=== PATIENT | female | born 1950 | race Caucasian/White ===

== ENCOUNTER 2018-11-27 14:44 | Inpatient (IN) ==
[2018-11-27 17:45] LABS: URINE SOURCE CATH
[2018-11-27 17:50] LABS: BILIRUBIN URINE NEGATIVE (NEGATIVE); BLOOD URINE NEGATIVE (NEGATIVE); COLOR YELLOW; GLUCOSE URINE NEGATIVE (NEGATIVE); KETONE URINE 40 mg/dL (NEGATIVE); LEUKOCYTES URINE NEGATIVE (NEGATIVE); NITRITE URINE NEGATIVE (NEGATIVE); PROTEIN URINE TRACE mg/dL (NEGATIVE); SP GRAVITY URINE 1.018; TURBIDITY URINE HAZY (CLEAR); UROBILINOGEN URINE NORMAL (NORMAL)
[2018-11-27 17:51] LABS: UR EPITHELIAL CELLS <10 /HPF (<10); URINE BACTERIA NEGATIVE /HPF; URINE RBC <10 /HPF (<10); URINE WBC <10 /HPF (<10)
[2018-11-27] MEDS ORDERED: MORPHINE IV ONE ×2 (17:52→20:27)
[2018-11-27] MEDS ORDERED: ZOFRAN IV ONE (17:52)
[2018-11-27] MEDS ORDERED: DUONEB (A & A) INH ONE (17:54)
--- NOTE | 2018-11-27 18:10 | Diag Imaging Result Doc PS360 ---
EXAM: CHEST-PORTABLE HISTORY: shortness of breath TECHNIQUE: Portable chest single view COMPARISON: 10/02/2018 FINDINGS: The lungs are hyperexpanded. The heart is not enlarged. The vessels are small. There are no infiltrates. No effusion identified. Calcified right hilar lymph nodes with granuloma in the mid right lung. IMPRESSION: Emphysema Electronically signed by Grupo Nelson 11/27/2018 6:08 PM
[2018-11-27 18:43] LABS: BASO# 0.02 X1000 (0.0-0.2); BASO% 0.3 % (0.0-0.8); EOS# 0.02 X1000 (0.0-0.7); EOS% 0.3 % (0.0-10.0); HEMATOCRIT 32.8 % (37.0-47.0); HEMOGLOBIN 11.4 g/dL (12.0-16.0); LYMPH# 0.91 X1000 (1.2-3.4); LYMPH% 12.1 % (20.5-51.1); MCH 30.3 PG (27-31); MCHC 34.8 g/dL (33-37); MCV 87.2 FL (81-99); MONO# 0.39 X1000 (0.11-0.59); MONO% 5.2 % (1.7-9.3); MPV 9.4 FL (7.4-10.4); NEUT# 6.21 X1000 (1.4-6.5); NEUT% 82.1 % (42.2-75.2); PLT 298 X1000 (130-400); RBC 3.76 XMIL (4.2-5.4); RDW 14.9 % (11.5-14.5); WBC 7.55 X1000 (4.8-10.8)
[2018-11-27 18:57] LABS: INR 0.93; PROTIME 13.2 Seconds (11.0-16.0)
[2018-11-27 18:58] LABS: PTT 31.2 Seconds (22.3-41.8)
[2018-11-27 19:19] LABS: ESTIMATED GFR > 60
[2018-11-27 19:23] LABS: AGAP 12; ALBUMIN 4.3 g/dL (3.5-5.0); ALKALINE PHOSPHATASE 71 U/L (32-104); BUN 10 mg/dL (8-22); CALCIUM 9.4 mg/dL (8.8-10.2); CHLORIDE 87 mmol/L (98-107); CK PROFILE 68 U/L (24-173); COSMO 251; CREATININE 0.3 mg/dL (0.5-0.9); GLUCOSE 100 mg/dL (70-104); GOT 18 U/L (10-30); GPT 23 U/L (10-36); POTASSIUM 4.2 mmol/L (3.5-5.1); SODIUM 125 mmol/L (136-145); TCO2 26 mmol/L (25-35); TOTAL BILIRUBIN 0.44 mg/dL (0.20-1.00); TOTAL PROTEIN 6.4 g/dL (6.3-8.3)
--- NOTE | 2018-11-27 21:30 | Diag Imaging Result Doc PS360 ---
EXAM: CT ABD/PELVIS W/IV CONT ONLY HISTORY: left groin pain; h/o inguinal hernia repair TECHNIQUE: CT abdomen and pelvis with intravenous contrast COMPARISON: Pelvis from 09/30/2018 FINDINGS: There are scattered granuloma in the lower lungs. There is emphysema with infiltrates in the lower left lung versus scarring. There is a small hepatic cysts and there is fatty infiltration of the liver. Spleen is not enlarged. The pancreas is atrophic. Neither adrenal gland is enlarged. No renal masses. Prominent atherosclerosis. Small distal abdominal aortic aneurysm measuring 3.1 cm. There is stool throughout the colon. There are several fluid distended loops of small bowel. Possible fluid within the left inguinal hernia. This is smaller than on the prior study. The urinary bladder is distended. There is body wall edema. IMPRESSION: 1.Questionable recurrent incarcerated left inguinal hernia although there is prominent constipation. 2.Small aortic aneurysm This exam was performed using automated exposure control, adjustment of mA or kV according to patient size, and/or use of iterative reconstruction technique. Electronically signed by Grupo Nelson 11/27/2018 9:28 PM
--- NOTE | 2018-11-27 22:36 | PROVIDER DOCUMENTATION ---
This chart was entered by Renetta Springer Scribe, acting as scribe for Nicanor Martinez MD. HPI-General Adult - General Chief Complaint: Groin Pain Stated Complaint: GROIN PAIN Time Seen by Provider: 11/27/18 17:27 Source: patient Allergies/Adverse Reactions: Patient Allergies Allergy/AdvReac Type Severity Reaction Status Date / Time diclofenac Allergy HEADACHE Verified 09/30/18 07:32 doxycycline Allergy SWELLING Verified 09/30/18 07:32 Tetanus Vaccines and Toxoid Allergy ANAPHYLAXIS Verified 09/30/18 07:32 [Tetanus Vaccines & Toxoid] propoxyphene HCl * AdvReac Unknown Verified 09/30/18 07:32 [From Darvon] Home Medications: Home Medication List Medication Instructions Recorded Confirmed Last Taken Type Fluticasone/Salmet 250/50 INH 1 puff INH RTBID 11/29/14 09/30/18 08/12/18 08:00 History [Advair 250/50 Diskus] Ranitidine HCl [Zantac] 150 mg PO BID 11/29/14 09/30/18 08/12/18 08:00 History Tiotropium [place] Inhaler 1 puff INH RTDAILY 11/29/14 09/30/18 08/11/18 13:00 History [Spiriva] Alprazolam 0.25 mg PO TID 08/12/18 09/30/18 08/12/18 08:00 History Albuterol Sulfate [Proventil Hfa] 6.7 gm IH PRN PRN 09/30/18 09/30/18 Unknown History Cyclobenzaprine [Flexeril] 10 mg PO PRN PRN 09/30/18 09/30/18 Unknown History Ipratropium [place] Neb [Atrovent 0.5 mg INH PRN PRN 09/30/18 09/30/18 Unknown History Neb] Venlafaxine E.r. [Effexor Xr] 150 mg PO DAILY 09/30/18 09/30/18 Unknown History Hydrocodone/APAP 10 mg/325 mg 1 ea PO Q4H PRN PRN #14 tab 10/02/18 Unknown Rx [[place]-10] - History of Present Illness -Gen Adult Nature of Presenting Problems: 67 yof hx of left groin hernia sx presents to ed with cc of left groin pain that radiates to left knee,left ankle and to the left flank. Reports sudden onset and is debilitates her from walking due to pain. Reports sharp and throbbing in nature. States nausea. Took ibuprofen and xanax with relief. Has copd on 3lpm. Review of Systems - Adult - REVIEW OF SYSTEMS - ADULT Constitutional: denies: chills, fever, fatique Eyes: reports: no symptoms reported Ears, Nose, Mouth & Throat: denies: ear pain, sinus problem, throat pain Cardiovascular: reports: no symptoms reported Respiratory: denies: cough, shortness of breath, wheezing Gastrointestinal: reports: nausea. denies: abdominal pain, diarrhea, vomiting Genitourinary: reports: flank pain (left), other (groin pain). denies: dysuria , discharge, frequency, frequent UTI's, hematuria, hesitency, incontinence Musculoskeletal: denies: bone pain, back pain, joint pain, joint swelling Integumentary: reports: no symptoms reported Neurological: reports: no symptoms reported Psychiatric: reports: no symptoms reported Endocrine: reports: no symptoms reported Hematologic/Lymphatic: reports: no symptoms reported Allergic/Immunologic: reports: no symptoms reported All Other Systems: Reviewed and Negative Past History - Adult - PAST MEDICAL HISTORY-ADULT Review of Records: reports: Nursing Assessment Review, Medications Reviewed Major Childhood Illnesses: reports: denies history Cardiovascular: reports: denies history Respiratory: reports: COPD Gastrointestinal: reports: GERD Obstetrical/Gynecological: reports: denies history Genitourinary: reports: denies history Musculoskeletal: reports: denies history Neurological: reports: headaches/migraines Psychiatric: reports: depression Endocrine/Immune: reports: Diabetes Other Conditions: reports: denies history - PRIOR SURGERIES/PROCEDURES Surgical/Procedure History: reports: BTL, tonsillectomy - PRIOR HOSPITALIZATIONS Prior Hospitalizations: reports: for other non-related - IMMUNIZATION STATUS Childhood Immunizations: See Nurse Assessment Flu Vaccine: See Nurse Assessment - FAMILY HISTORY Family History: reviewed, not pertinent - SOCIAL HISTORY Smoking: cigarettes, greater than 1 pack/day Provider spent 3-5 mins advising pt. on dangers of tobacco.: Discussed manners to quit use, and f/u contacts for add'l counseling. Physical Exam-General - PHYSICAL EXAM-ADULT Initial Vital Signs Reviewed: Yes - CONSTITUTIONAL General Appearance: alert, moderate distress, thin, other (3 lpm NC o2) - EYES Eyes: PERRL/EOMI, pink conjunctivae - HEAD, EARS, NOSE, MOUTH & THROAT HENMT: moist mucous membranes - NECK Neck: non-tender, full range of motion, supple, normal inspection - RESPIRATORY Respiratory: decreased breath sounds, prolonged expiration. negative: wheezing - CARDIOVASCULAR Cardiovascular: regular rate, rhythm - GASTROINTESTINAL (ABDOMEN) Abdominal Exam: non tender, soft, no organomegaly, no pulsatile mass, tenderness (moderate, in left groin ; prior surgical scar noted with induration noted) - GENITOURINARY Female Genitalia/Pelvic Exam: other (left groin tenderness upon palpation, healed surgical scar to left groin). negative: mass - MUSCULOSKELETAL Back Exam: normal inspection Extremity: normal range of motion, other (walks bent over due to pain) - SKIN Integumentary: normal color, normal turgor, warm/dry - NEUROLOGIC Neurologic: grossly normal - PSYCHIATRIC Psych/Mental Status: normal thought process, oriented x 3 Progress - PLAN OF CARE/RESULTS Progress/Plan/Lab Results: Vital Signs - 8 hr 11/27/18 15:09 11/27/18 17:33 Temperature 98.7 F 98.7 F Pulse Rate 94 H 89 Respiratory Rate 20 20 Blood Pressure 147/78 148/80 O2 Sat by Pulse Oximetry 97 97 Orders Category Date Time Status CBC WITH ELECTRONIC DIFF [HEME] Stat Lab 11/27/18 17:28 Uncollected COMPREHENSIVE METABOLIC PANEL [CHEM] Stat Lab 11/27/18 17:28 Uncollected PT [PROTIME WITH INR] [COAG] Stat Lab 11/27/18 17:28 Uncollected PTT [COAG] Stat Lab 11/27/18 17:28 Uncollected UA NIMS W/REFLEX CULT [URINALYSIS] Stat Lab 11/27/18 16:37 Ordered Result Diagrams: 11/27/18 18:28 11/27/18 18:28 - XRAY 1 XRAY Study: Chest Impression: Abnormal (EXAM: CHEST-PORTABLE HISTORY: shortness of breath TECHNIQUE: Portable chest single view COMPARISON: 10/02/2018 FINDINGS: The lungs are hyperexpanded. The heart is not enlarged. The vessels are small. There are no infiltrates. No effusion identified. Calcified right hilar lymph nodes with granuloma in the mid right lung. IMPRESSION: Emphysema Electronically signed by Grupo Nelson 11/27/2018 6:08 PM 11/27/181807 Interpreting Physician: Grupo Nelson MD Dictated Date/Time: 11/27/[id number]) - CONSULTS/PCP/HOSPITALIST Notification #1 *Consult/PCP/Hospitalist*: Dr. Minor Time Discussed: 22:10 Consult Disposition: Will see in ED Departure - Departure Date of Disposition Decision: 11/27/18 Time of Disposition Decision: 22:35 DIAGNOSIS: Hyponatremia, Incarcerated hernia Groin pain Qualifiers: Laterality: left Qualified Code(s): R10.32 - Left lower quadrant pain Disposition: ADMITTED INPATIENT 09 Certified Medical Emergency: Emergent Condition: Serious - Critical Care Note This patient required my direct & personal management of CC.: No Attestation - Physician/ DAGOBERTO Attestation Patient care was provided by Advanced Practice Provider:: No The physician spent face to face time with patient:: Yes Advanced Practice Provider documentation review:: Supervising physician onsite and consulted in the evaluation and care of this patient. The physician did have a face to face encounter with the patient. This chart was documented by the indicated scribe, (Renetta Springer Scribe) and accurately reflects the services I performed and decisions made by me, Nicanor Martinez MD, as attested by the provider's signature.
[2018-11-27] MEDS ORDERED: MORPHINE IV PRN (23:01)
[2018-11-27] MEDS: NS 1,000 ML IV SCH (23:01)
[2018-11-27] MEDS ORDERED: VENTOLIN HFA INH PRN (23:01)
[2018-11-27] MEDS ORDERED: ATROVENT NEB INH PRN (23:01)
--- NOTE | 2018-11-28 01:09 | HISTORY AND PHYSICAL ---
CHIEF COMPLAINT: Left groin pain. HISTORY OF PRESENT ILLNESS: This is a 67-year-old female who experienced a sudden onset of pain today around 1:00 p.m., it has persisted so she has sought medical attention. She had a similar presentation in September at which time she was felt to have an incarcerated obturator hernia. Her CT scan today shows a small area of low density in the left groin region which is possible for an incarcerated hernia. She denies any nausea or vomiting. PAST MEDICAL HISTORY: Pertinent for COPD, gastroesophageal reflux disease, history of depression, and nicotine abuse. PAST SURGICAL HISTORY: Includes a tonsillectomy, bilateral tubal ligation, and the obturator hernia repair in September. MEDICATIONS AT HOME: Include Proventil inhaler as needed, calcium 600 mg daily, Advair 250/50 one puff b.i.d., multivitamins 1 daily, Zantac 150 mg b.i.d., Spiriva 1 puff daily, Effexor XR 150 mg daily, vitamin E 400 units daily, alprazolam 0.25 mg t.i.d. ALLERGIES: She is allergic to diclofenac, doxycycline, tetanus vaccines, and propoxyphene. PRIMARY CARE PHYSICIAN: Orion Freire MD. FAMILY HISTORY: Noncontributory. SOCIAL HISTORY: She lives alone. She does smoke. She denies alcohol use. REVIEW OF SYSTEMS: Pertinent for weight loss, primarily a chronic cough, and today the left groin pain. PHYSICAL EXAMINATION: VITAL SIGNS: She is afebrile, heart rate 89, respiratory rate 20, blood pressure 148/80. LUNGS: Bilateral breath sounds. She has oxygen. HEART: Regular rate and rhythm. ABDOMEN: Soft. I do not palpate a hernia in the left groin. I cannot pinpoint the area of hernia. I did not feel any thing in her femoral canal. DIAGNOSTICS/LABS: White count is 7500, hemoglobin 11.4, hematocrit 32. Sodium 125, potassium 4.2, chloride 87. She did have ketones in her urine. CT scan shows constipation and a possible low-density area in the left groin. PLAN: The plan is admission, IV hydration and keep her NPO. We will give her some pain relief. We will do serial abdominal exams. She may come to laparoscopy. cc: Escobar Minor MD
[2018-11-28] MEDS: ADVAIR 250/50 DISKUS INH SCH ×2 (07:30→20:50)
--- NOTE | 2018-11-28 08:19 | GENERAL SURGERY PROGRESS NOTE ---
DATE: 11/28/2018 SUBJECTIVE: Ms. Lambert says her left lower quadrant pain is significantly improved today and is not causing her any discomfort. OBJECTIVE: She is short of breath. She has distant breath sounds. Her abdomen is soft and nontender. She is afebrile. Heart rate is 76, blood pressure 123/69. The plan will be to consult pulmonology. We will go ahead and feed her today since her symptoms are better. cc: Escobar Minor MD
[2018-11-28 08:34] LABS: HEMATOCRIT 33.3 % (37.0-47.0); HEMOGLOBIN 11.2 g/dL (12.0-16.0); MCH 29.9 PG (27-31); MCHC 33.6 g/dL (33-37); MPV 8.9 FL (7.4-10.4); RBC 3.74 XMIL (4.2-5.4); RDW 15.3 % (11.5-14.5); WBC 6.21 X1000 (4.8-10.8)
[2018-11-28 09:39] LABS: AGAP 10; BUN 7 mg/dL (8-22); CALCIUM 9.3 mg/dL (8.8-10.2); CHLORIDE 94 mmol/L (98-107); COSMO 262; CREATININE 0.4 mg/dL (0.5-0.9); ESTIMATED GFR > 60; GLUCOSE 89 mg/dL (70-104); POTASSIUM 3.9 mmol/L (3.5-5.1); SODIUM 132 mmol/L (136-145); TCO2 28 mmol/L (25-35)
[2018-11-28 10:14] LABS: ALLEN TEST YES; BE 4.4 mmoll (-3.0-3.0); BLOOD TYPE ARTERIAL; HCO3-(ACT) 28.3 mmoll (20.0-26.0); O2(CT) 15.4 mL/dL (15.0-23.0); O2HB 95.9 % (95.0-99.0); PCO2(98.6) 50 mmHg (35-45); PO2(98.6) 107 mmHg (60-100); SAMPLE BLOOD; SAO2 98.4 % (95.0-100.0); THB 11.3 g/dL (11.5-17.4); pH(98.6) 7.39 (7.35-7.45)
[2018-11-28 10:15] LABS: MODALITY VENTIMASK
[2018-11-28] MEDS: EFFEXOR XR PO SCH (10:53)
[2018-11-28] MEDS: ZANTAC PO SCH ×2 (10:53→22:37)
[2018-11-28] MEDS: XANAX PO SCH ×3 (10:54→22:36)
[2018-11-28] MEDS: SPIRIVA INH SCH (11:14)
--- NOTE | 2018-11-28 12:52 | PULMONOLOGY CONSULTATION ---
DATE: 11/28/2018 REQUESTING PHYSICIAN: Dr. Escobar Minor. REASON FOR CONSULTATION: COPD. HISTORY OF PRESENT ILLNESS: Ms Lambert is a 67-year-old white female with COPD, chronic hypoxemic respiratory failure, with ongoing tobacco use, who presented to the emergency room with left groin pain. Patient reports pain increased with standing and caused some nausea. The patient had recently undergone a surgical repair of an incarcerated femoral hernia in September. At that time, she was hypoxic at discharge and has been on chronic oxygen since that time. CT scan of the abdomen and pelvis was performed in the emergency room, which revealed significant constipation, small aortic aneurysm, and raised the possibility of a recurrent incarcerated left inguinal hernia. The patient's pain has essentially resolved. The patient has been evaluated by Dr. Escobar Minor who feels a scan is consistent with postsurgical changes with inflammatory findings and not a recurrent incarceration. The patient has noticed increased wheezing along with increased cough and sputum production, but her sputum production does not appear to be significantly different than her baseline. PAST MEDICAL HISTORY PROBLEM LIST: 1. COPD with ongoing tobacco use. Pulmonary angiogram 08/12/2018 revealed severe emphysematous changes with evidence of prior granulomatous disease, but no acute disease. 2. Status post recent inguinal hernia repair as per above. 3. Gastroesophageal reflux disease. 4. Status post tonsillectomy. 5. Status post bilateral tubal ligation. 6. Remote history of alcohol abuse. SOCIAL HISTORY: The patient is . Ongoing tobacco use as per above. History of alcohol abuse. The patient has been a nondrinker for greater than 35 years by her report. REVIEW OF SYSTEMS: Notable for shortness of breath with any exertion, cough with daily sputum production. PHYSICAL EXAMINATION: General: Reveals a frail chronically ill-appearing white female in the emergency room. She is in no distress. Vital Signs: Blood pressure 123/72, heart rate 86, respiratory rate 21, oxygen saturation 98%. HEENT: Pupils are equal and reactive. Oropharynx is clear. Neck: Supple. Chest: Reveals markedly diminished breath sounds bilaterally with faint expiratory wheezing. Cardiac exam: Distant heart sounds. Normal S1, normal S2. Abdomen: Soft without hepatosplenomegaly. Extremities: Without significant edema. LABORATORIES/X-RAYS: Chest x-ray reveals hyperinflation with thinning of the vessels, evidence of prior granulomatous disease, no acute changes. Arterial blood gas reveals a pH of 7.39, pCO2 of 50, PO2 of 107. IMPRESSION: A 67-year-old with severe chronic obstructive pulmonary disease, ongoing tobacco use, who presents with a chronic obstructive pulmonary disease exacerbation. RECOMMENDATIONS: 1. We will initiate routine bronchodilators. 2. Attempt to collect sputum for C and S. 3. Initiate steroids. 4. Smoking cessation discussion. Long discussion was held. She reports she is down to 1/2 pack a day from previously smoking 1 pack a day, and she would like to continue to decrease this amount and stop by her birthday in December. cc: MD Escobar Bautista MD
[2018-11-28] MEDS: DUONEB (A & A) INH SCH ×2 (14:52→20:50)
[2018-11-28] MEDS: PREDNISONE PO SCH (22:35)
[2018-11-28] MEDS: LEVAQUIN PO SCH (22:36)
[2018-11-29] MEDS: NS 1,000 ML IV SCH ×2 (01:28→12:44)
[2018-11-29] MEDS: DUONEB (A & A) INH SCH ×2 (03:25→10:05)
[2018-11-29 07:41] VITALS: BP 105/57
--- NOTE | 2018-11-29 08:35 | GENERAL SURGERY PROGRESS NOTE ---
DATE: 11/29/2018 Ms. Lambert is asymptomatic this morning. Her abdomen is nontender. She is eating well, and she is ready to be discharged. We will let her go home. I have asked her to call me in the office if she has further symptoms. She says she will. cc: Escobar Minor MD
[2018-11-29] MEDS: EFFEXOR XR PO SCH (09:06)
[2018-11-29] MEDS: XANAX PO SCH (09:06)
[2018-11-29] MEDS: LEVAQUIN PO SCH (09:06)
[2018-11-29] MEDS: PREDNISONE PO SCH (09:06)
[2018-11-29] MEDS: ZANTAC PO SCH (09:06)
[2018-11-29] MEDS: ADVAIR 250/50 DISKUS INH SCH (10:06)
[2018-11-29] MEDS: SPIRIVA INH SCH (10:06)
--- NOTE | 2018-11-29 23:37 | PULMONOLOGY PROGRESS NOTE ---
DATE: 11/29/2018 SUBJECTIVE: The patient reports her abdominal pain has completely resolved. She is also having decreased shortness of breath, and her oxygen requirements have diminished. She is being evaluated for discharge. OBJECTIVE: Vital Signs: The patient has been afebrile for the last 24 hours. Blood pressure 105/57, heart rate 90, respiratory rate 20, oxygen saturation 93% on 3 L per nasal cannula. HEENT: Pupils are equal and reactive. Oropharynx is clear. Neck: Supple. Chest: Reveals prolonged expiratory phase, with minimal wheezing. Cardiac: S1-S2. Abdomen: Soft. Extremities: Without edema. LABORATORIES: Sputum culture reveals sparse growth. No new chemistries or CBC. IMPRESSION: A 67-year-old with severe COPD, ongoing tobacco use, with COPD exacerbation. Clinically, she is improved, and is currently being evaluated for discharge. RECOMMENDATIONS: 1. Continue antibiotics. The patient was given a prescription for Levaquin at discharge. 2. Initiate a steroid taper. 3. Encourage smoking cessation. The patient says she is committed to discontinuing tobacco, and is attempting to have stopped smoking by her birthday in December. 4. Anticipate discharge today. cc: MD Escobar Bautista MD
== END 2018-11-29 12:56 | disposition home or self-care (01) | DRG 392 ==
LOC: ED 14:44 → EDIPHOLD 11-28 00:28 → 4N 11-28 14:22
PROVIDERS: ADMIT Surgery; ATTEND Surgery
CPT/HCPCS: 71010; 71045; 74177; 80048; 80053; 81001; 82550; 82805; 84484; 85025; 85027; 85610; 85730; 87070; 87077; 87186; 87205; 93005; 94640; 94761; 94762; 96374; 96375; 96376; 99285; A9270; J2270; J2405; J7030; J7506; J7512; Q9967

== ENCOUNTER 2019-01-23 09:43 | Inpatient (IN) ==
[2019-01-23] MEDS ORDERED: ATIVAN IV ONE (10:44)
[2019-01-23] MEDS ORDERED: SOLU-MEDROL IV ONE (10:44)
[2019-01-23] MEDS ORDERED: DUONEB (A & A) INH ONE (10:44)
--- NOTE | 2019-01-23 10:47 | Diag Imaging Result Doc PS360 ---
EXAM: CHEST-2 VIEWS HISTORY: SOB TECHNIQUE: Chest two views COMPARISON: 01/16/2019 FINDINGS: The lungs are hyperexpanded. The heart is not enlarged. The vessels are small. There are no infiltrates. No pleural effusions. There are scattered granuloma. IMPRESSION: Severe emphysema. Electronically signed by Grupo Nelson 01/23/2019 10:45 AM
[2019-01-23 10:57] LABS: BASO# 0.01 X1000 (0.0-0.2); BASO% 0.1 % (0.0-0.8); EOS# 0.02 X1000 (0.0-0.7); EOS% 0.3 % (0.0-10.0); HEMATOCRIT 37.8 % (37.0-47.0); HEMOGLOBIN 13.3 g/dL (12.0-16.0); LYMPH# 0.54 X1000 (1.2-3.4); LYMPH% 6.9 % (20.5-51.1); MCH 30.8 PG (27-31); MCHC 35.2 g/dL (33-37); MCV 87.5 FL (81-99); MONO# 0.41 X1000 (0.11-0.59); MONO% 5.2 % (1.7-9.3); MPV 9.4 FL (7.4-10.4); NEUT# 6.85 X1000 (1.4-6.5); NEUT% 87.5 % (42.2-75.2); PLT 350 X1000 (130-400); RBC 4.32 XMIL (4.2-5.4); WBC 7.83 X1000 (4.8-10.8)
[2019-01-23 11:00] LABS: INR 0.93; PROTIME 13.2 Seconds (11.0-16.0)
[2019-01-23 11:01] LABS: PTT 31.7 Seconds (22.3-41.8)
[2019-01-23 11:17] LABS: ESTIMATED GFR > 60
[2019-01-23 11:37] LABS: ALLEN TEST YES; BLOOD TYPE ARTERIAL; HCO3-(ACT) 29.5 mmoll (20.0-26.0); METHB 0.5 % (0.0-1.5); O2(CT) 17.5 mL/dL (15.0-23.0); O2HB 94.6 % (95.0-99.0); PCO2(98.6) 43 mmHg (35-45); PO2(98.6) 78 mmHg (60-100); SAMPLE BLOOD; SAO2 97.6 % (95.0-100.0); THB 13.1 g/dL (11.5-17.4); pH(98.6) 7.46 (7.35-7.45)
[2019-01-23 11:41] LABS: AGAP 10; ALB/GLOB RATIO 1.8; ALBUMIN 4.7 g/dL (3.5-5.0); ALKALINE PHOSPHATASE 85 U/L (32-104); BUN 12 mg/dL (8-22); CALCIUM 9.9 mg/dL (8.8-10.2); CHLORIDE 85 mmol/L (98-107); CK PROFILE 78 U/L (24-173); COSMO 251; CREATININE 0.4 mg/dL (0.5-0.9); GLUCOSE 100 mg/dL (70-104); GOT 27 U/L (10-30); GPT 33 U/L (10-36); POTASSIUM 4.1 mmol/L (3.5-5.1); SODIUM 125 mmol/L (136-145); TCO2 30 mmol/L (25-35); TOTAL BILIRUBIN 0.27 mg/dL (0.20-1.00); TOTAL PROTEIN 7.3 g/dL (6.3-8.3)
[2019-01-23 11:43] LABS: MODALITY CANNULA
[2019-01-23] MEDS ORDERED: ZOFRAN IV PRN (13:31)
[2019-01-23] MEDS ORDERED: TYLENOL PO PRN (13:31)
[2019-01-23] MEDS ORDERED: DUONEB (A & A) INH PRN (13:32)
[2019-01-23] MEDS: SOLU-MEDROL IV SCH (13:45)
[2019-01-23] MEDS: NS 1,000 ML IV SCH (13:51)
--- NOTE | 2019-01-23 14:39 | HISTORY AND PHYSICAL ---
CHIEF COMPLAINT: Shortness of breath. HISTORY OF PRESENT ILLNESS: This is a 68-year-old female with a history of COPD with continued tobacco use, home O2 at 4 L nasal cannula, who presents complaining of increasing shortness of breath over the last 2 days, stating that just prior to coming to the emergency room she developed 90 degree orthopnea with some chest tightness, therefore she presented for evaluation. She was found to be in a COPD exacerbation. She denied any syncope, dizziness, any palpitations, any fevers or chills, or productive cough. PAST MEDICAL HISTORY: 1. COPD with ongoing tobacco use. 2. Severe emphysematous changes on pulmonary arteriogram in July 2018. 3. Gastroesophageal reflux disease. 4. Remote history of alcohol abuse. 5. Status post recent inguinal hernia repair with continued pain. PAST SURGICAL HISTORY: Hernia repair, tonsillectomy, bilateral tubal ligation. SOCIAL HISTORY: She is . She smokes. She does have a history of alcohol abuse, although she states she has been a nondrinker for 35 years. ALLERGIES: Diclofenac, doxycycline, tetanus, and Darvon. HOME MEDICATIONS: A list will be obtained by the nursing staff and once verified will review and restart as is appropriate. REVIEW OF SYSTEMS: Discussed with patient with pertinent positives stated in the HPI. She denied any syncope, dizziness, palpitations, productive cough, any fevers or chills, any night sweats, recent weight loss or weight gain, any nausea, vomiting, diarrhea, constipation, black or bloody vomitus or stools, hematuria, dysuria, frequency, urgency. PHYSICAL EXAMINATION: GENERAL: This is a 68-year-old female who is sitting up in the bed, eating lunch in the emergency room, in no distress. VITAL SIGNS: Blood pressure is 136/80 with a heart rate of 96, respirations are 22, temperature is 98.8 degrees. EYES: Pupils are equal, round, react to light. EOMs are intact. Sclerae anicteric. HENT: Head is normocephalic, atraumatic. Mucous membranes are moist. NECK: Supple with trachea midline. PULMONARY: She has diminished breath sounds throughout with prolonged respiration with some scattered expiratory wheezes. Chest rises and falls symmetric with respiration. Chest wall is nontender to palpation. GASTROINTESTINAL: Abdomen is soft, nontender, nondistended with bowel sounds in all 4 quadrants. NEUROLOGIC: She is alert and oriented x3. SKIN: Warm and dry. LABS: WBC is 7.8, with hemoglobin 13.3, hematocrit 37.8, platelets of 350,000. Sodium is 125, potassium 4.1, BUN 12, creatinine 0.4, glucose is 100. Troponin is less than 0.010, with a proBNP of 787. Chest x-ray reveals severe emphysema with lungs hyperexpanded. Heart is not enlarged. Vessels are small. There are no infiltrates. No pleural effusions. There are scattered granuloma. ASSESSMENT: 1. Chronic obstructive pulmonary disease, acute on chronic exacerbation. 2. Gastroesophageal reflux disease. 3. Hyponatremia. 4. Shortness of breath secondary to #1. 5. Tobacco use and abuse. PLAN: The patient will be admitted to the medical-surgical floor and placed on telemetry. We will continue her O2 on 4 L as at home. Give DuoNeb q.4 hours and q.2 hours p.r.n. and steroids to taper. Will identify her home medications and continue these as is appropriate. We will start saline at 75 mL an hour. Will review her home medications for possible cause of hyponatremia. We will repeat her labs in the morning. For DVT prophylaxis will use SCDs and GI prophylaxis Prilosec. Further treatments pending hospital course. Dictated by CITLALY Figueroa for Harley Baugh MD This chart was documented by, CITLALY Figueroa and accurately reflects the services performed, treatment plan and medical decisions as attested by the providers signature Harley Baugh MD. cc: CITLALY Figueroa MD [facility]
[2019-01-23] MEDS: DUONEB (A & A) INH SCH ×3 (14:58→23:37)
[2019-01-23] MEDS: XANAX PO PRN (17:23)
[2019-01-23] MEDS: NICODERM PATCH TD SCH (18:26)
[2019-01-23] MEDS: MOTRIN PO PRN ×2 (18:27→21:34)
--- NOTE | 2019-01-23 20:25 | HISTORY AND PHYSICAL ---
ADDENDUM: Ms. Lambert has endstage COPD, on home oxygen. She usually follows up with Dr. Freire. According to her, she was here about a week ago for what appeared to have been COPD exacerbation. She was sent home on steroids and azithromycin. According to her, she felt some better; however, since 2 days ago she felt like something was clogging up her lungs. This morning when she woke up she could barely breathe, so she came to the emergency department. She was re- evaluated and determined that she was in severe COPD exacerbation, so she has been admitted for management. PHYSICAL EXAMINATION: VITAL SIGNS: Blood pressure is 163/113, pulse is 109, respirations 24. The patient was saturating about 91% to 89%. GENERAL: Ms. Lambert is a 68-year-old, extremely cachectic female. She was in tripod position. She seems to be in distress. HEENT: Mucosa is pink and moist. CHEST: Air entry is bilaterally reduced. There is very faint movement of air in both lung gee. I did not hear any crackles. CARDIOVASCULAR: Tachycardic but no murmurs. EXTREMITIES: No pedal edema. DRILLING ENGINEER: The patient is awake, alert and oriented. ASSESSMENT: 1. Idllb-kg-nrjgjeg hypoxemic respiratory failure. 2. Severe chronic obstructive pulmonary disease exacerbation. 3. Ongoing tobacco abuse. The patient, however, refers to have shown improvement from almost 2 packs a day to just 2 cigarettes a day. 4. Gastroesophageal reflux disease. PLAN: We are going to continue with standard of care including bronchodilation therapy, steroids and antibiotics. The patient is getting gentle hydration overnight. We will re-evaluate her hydration status in the morning. We will get also Pulmonary Medicine and PT to evaluate her. We will put the patient also on incentive spirometer. Please refer to the details of the H and P in the chart which has been dictated by the MASTER GLAZIER. I agreed with the findings and the plan. cc: Harley Baugh MD
[2019-01-23] MEDS: ADVAIR 250/50 DISKUS INH SCH (21:34)
[2019-01-24] MEDS: SOLU-MEDROL IV SCH ×4 (00:04→20:35)
[2019-01-24] MEDS: ZANTAC PO SCH ×4 (00:06→17:41)
[2019-01-24] MEDS: MOTRIN PO PRN ×5 (01:02→20:33)
[2019-01-24] MEDS: DUONEB (A & A) INH SCH ×6 (02:54→23:15)
[2019-01-24] MEDS: NS 1,000 ML IV SCH (06:01)
[2019-01-24 06:31] LABS: HEMATOCRIT 32.1 % (37.0-47.0); HEMOGLOBIN 11.4 g/dL (12.0-16.0); LYMPH# 0.33 X1000 (1.2-3.4); LYMPH% 11.1 % (20.5-51.1); MCH 30.9 PG (27-31); MCHC 35.5 g/dL (33-37); MONO# 0.27 X1000 (0.11-0.59); MONO% 9.1 % (1.7-9.3); MPV 9.4 FL (7.4-10.4); NEUT# 2.36 X1000 (1.4-6.5); NEUT% 79.8 % (42.2-75.2); PLT 310 X1000 (130-400); RBC 3.69 XMIL (4.2-5.4); RDW 13.5 % (11.5-14.5); WBC 2.96 X1000 (4.8-10.8)
[2019-01-24] MEDS ORDERED: PRILOSEC PO SCH (07:00)
[2019-01-24 07:03] LABS: ESTIMATED GFR > 60
[2019-01-24 07:06] LABS: AGAP 11; ALB/GLOB RATIO 1.6; ALBUMIN 3.8 g/dL (3.5-5.0); ALKALINE PHOSPHATASE 67 U/L (32-104); BUN 12 mg/dL (8-22); CALCIUM 9.4 mg/dL (8.8-10.2); CHLORIDE 88 mmol/L (98-107); COSMO 258; CREATININE 0.4 mg/dL (0.5-0.9); GLUCOSE 113 mg/dL (70-104); GOT 22 U/L (10-30); GPT 29 U/L (10-36); POTASSIUM 4.5 mmol/L (3.5-5.1); SODIUM 128 mmol/L (136-145); TCO2 29 mmol/L (25-35); TOTAL BILIRUBIN 0.35 mg/dL (0.20-1.00); TOTAL PROTEIN 6.2 g/dL (6.3-8.3)
[2019-01-24] MEDS: SPIRIVA INH SCH (08:15)
[2019-01-24] MEDS: ADVAIR 250/50 DISKUS INH SCH ×2 (08:15→19:57)
[2019-01-24] MEDS ORDERED: VANCOMYCIN IV PER PHARMACY MISC SCH (08:45)
[2019-01-24] MEDS: NICODERM PATCH TD SCH (10:00)
[2019-01-24] MEDS: EFFEXOR XR PO SCH (10:00)
[2019-01-24] MEDS: XANAX PO PRN ×2 (10:06→18:48)
[2019-01-24] MEDS: MAXIPIME 1 GM in NS 50 ML IV SCH ×2 (10:06→20:35)
[2019-01-24] MEDS: VANCOMYCIN 1 GM/NS 1 GM/250 ML IVPB IV SCH (11:19)
[2019-01-24] MEDS ORDERED: AYR NASAL SPRAY NAS PRN (14:27)
--- NOTE | 2019-01-24 16:21 | PROGRESS NOTE ---
DATE: 01/24/2019 SUBJECTIVE: This morning, Ms. Diaz refers to be doing a little better. Still has a lot of shortness of breath. She just start coughing up some villarreal dark sputum. OBJECTIVE: Vital signs: Blood pressure is 132/68, pulse is 103, respirations 24, temperature 98.9 degrees. On general exam, Ms. Diaz is a 68-year-old female. She was sitting up in the bed in tripod position with the chest leaned forward. She looks remarkably emaciated with a BMI of 13.08. Her neck is supple, no JVD. Chest: Air entry was bilaterally reduced. There is some faint wheezing, but no rhonchi and no crackles. There is a prolonged expiratory phase of respiration. Cardiovascular is regular rate and rhythm. No murmurs, no rubs, no gallops. Abdomen is soft, nontender. Bowel sounds present. Extremities: No pedal edema. Central Nervous System: Patient is awake, alert, oriented. There is no focal neurological deficit. DIAGNOSTIC STUDIES: WBC is 2.96, hemoglobin is 11.4, platelet count of 310,000. Chemistry is also reviewed completely unremarkable. No imaging studies for today. ASSESSMENT: 1. Acute on chronic hypoxemic respiratory failure secondary to chronic obstructive pulmonary disease (COPD) exacerbation. 2. 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 We will continue with the current bronchodilation therapy, antibiotics, and steroid use. 3. Ongoing tobacco abuse. Patient has been counseled. 4. Gastroesophageal reflux disease (GERD). We will continue with PPI. 5. Pulmonary cachexia. Noted. 6. Hyponatremia, improving. In general, Ms. Diaz is extremely critical, very sick, end-stage COPD in exacerbation. The lungs still sound pretty tight. She is now coughing up some grayish dark sputum which we are going to collect and sent for Gram stain and culture. We will continue with the current antibiotics. We have discussed DNR status with Ms. Diaz, and she wants to be DNR level 1. She also wants hospice consult. Palliative Medicine was consulted, and hospice will also be consulted. cc: Harley Baugh MD
[2019-01-24] MEDS: MORPHINE IV PRN (17:40)
[2019-01-24] MEDS: FLONASE NAS SCH (18:48)
--- NOTE | 2019-01-24 23:43 | CONSULTATION ---
DATE OF CONSULTATION: 01/24/2019 REQUESTING PROVIDER: Harley Baugh MD. REASON FOR CONSULTATION: COPD exacerbation. HISTORY OF PRESENT ILLNESS: This is a 68-year-old female with a medical history of end-stage COPD, severe emphysema, gastroesophageal reflux disease, depression, seasonal pollen allergy, and remote history of alcohol abuse. She presented to the ER yesterday with worsening shortness of breath for 2 days with acute orthopnea and acute chest tightness. Initial workup in the ER revealed COPD exacerbation. She has been admitted to the medical floor for further evaluation and management. At the time of my examination, the patient is lying in bed with mild acute respiratory distress. As she starts talking to me, she had to sit up and stay in a tripod position. She reports she presented to the ER last week with COPD exacerbation. She was discharged home with steroid and antibiotic. She had been feeling better, but since Monday, she has been having worsening shortness of breath again together with runny nose and nasal congestion. She started taking Flonase. She states "pollen kills me." She reports hot flash daily at home with profuse sweating, mainly between 7 a.m. and to 8 a.m., and this has happened twice during this hospital stay. She also has chronic dry cough, shortness of breath, occasional constipation, and heartburn. She reports she has a good appetite and has been taking Ensure at home. She denies fever, chills, wheezing, dizziness, or palpitation. PAST MEDICAL AND SURGICAL HISTORY: 1. End-stage COPD with ongoing tobacco use, on continuous oxygen at 3 to 4 L with humidifier. She is also on Proventil, DuoNeb, Advair, and Spiriva at home. 2. Severe emphysema. 3. Gastroesophageal reflux disease. 4. Depression. 5. Seasonal pollen allergy. 6. Remote history of alcohol abuse. 7. Repair of incarcerated left obturator hernia on 09/30/[address] Minor. Still having left groin pain. 8. Tonsillectomy. 9. Bilateral tubal ligation. SOCIAL HISTORY: The patient lives at home alone. She started smoking at 24 years old. She used to smoke about 1 pack per day but has been cutting down to 2 cigarettes per day recently. She has a remote history of alcohol abuse and has been sober for 37 years. She has no history of illicit drug use. FAMILY HISTORY: Father of lung cancer. Mother had lung cancer. Maternal grandmother had uterine cancer. Maternal grandfather had diabetes and heart attack. Sister has rheumatoid arthritis. ALLERGIES: Diclofenac, doxycycline, gluten, tetanus vaccine and toxoid, and Darvon. REVIEW OF SYSTEMS: A 10-point review of systems was conducted, and the pertinent is listed within the HPI. Otherwise noncontributory. PHYSICAL EXAMINATION: Vital Signs: Temperature 97.9 degrees, blood pressure 121/65, pulse 96, respiratory rate 20, oxygen saturation 95% on nasal cannula at 4 L. General: Chronically ill appearing, severely malnourished, in mild acute distress, and had to sit in tripod position when talking. HEENT: Atraumatic. Trachea midline. Mucosa pink and moist. Respiratory: Even and unlabored. Symmetrical excursion. Auscultation reveals diminished breathing sounds bilaterally with prolonged expiratory phase and mild inspiratory wheezing bilaterally. Cardiovascular: Regular rate and rhythm. Gastrointestinal: Bowel sounds normoactive in all 4 quadrants. Soft, nontender, and flat. Extremities: No pedal edema. No cyanosis. No clubbing. Neurologic: Alert and oriented x3. Speech fluent. Follows commands. LABORATORY DATA: WBC 2.96, Hemoglobin 11.4, Hematocrit 32.1, Platelets 310,000. Sodium 128, potassium 4.5, chloride 88, carbon dioxide 29, BUN 12, creatinine 0.4, glucose 113. ABG: pH 7.46, pCO2 43, pO2 78, HCO3 29.5, base excess 6.0 and oxyhemoglobin 94.6. ASSESSMENT: This is a 68yo female with a medical history of end-stage COPD, severe emphysema, gastroesophageal reflux disease, depression, seasonal pollen allergy, and remote history of alcohol abuse. She has been admitted to the medical floor with COPD exacerbation. 1. Acute on chronic hypoxemic respiratory failure 2. COPD exacerbation 3. Ongoing tobacco abuse 4. DNR1 PLAN: 1. Continue supplemental oxygen. 2. Continue Cefepime, Vancomycin, Solu-medrol and bronchodilators. 3. Follow up with CBC, CMP, and sputum culture. 4. Check ABG and CXR if indicated. 5. Educate patient on the importance and the means of smoking cessation. Patient states she is ready to quit smoking and at this time the nicotine patch works pretty well. 6. Continue GI and DVT prophylaxis. 7. Further recommendations pending hospital course. Thank you for the courtesy of this consult. Dictated by CITLALY Aleman for Herman Whitney MD cc: CITLALY Aleman MD [facility]
[2019-01-25] MEDS: SOLU-MEDROL IV SCH ×5 (03:34→20:35)
[2019-01-25] MEDS: FLONASE NAS SCH ×3 (03:35→20:37)
[2019-01-25] MEDS: DUONEB (A & A) INH SCH ×6 (03:50→23:35)
[2019-01-25] MEDS: MOTRIN PO PRN (04:16)
[2019-01-25] MEDS: VANCOMYCIN 1 GM/NS 1 GM/250 ML IVPB IV SCH ×2 (04:17→23:15)
[2019-01-25 06:38] LABS: HEMATOCRIT 32.5 % (37.0-47.0); HEMOGLOBIN 11.3 g/dL (12.0-16.0); LYMPH# 0.37 X1000 (1.2-3.4); LYMPH% 6.9 % (20.5-51.1); MCH 30.6 PG (27-31); MCHC 34.8 g/dL (33-37); MCV 88.1 FL (81-99); MONO# 0.84 X1000 (0.11-0.59); MONO% 15.6 % (1.7-9.3); MPV 9.6 FL (7.4-10.4); NEUT# 4.18 X1000 (1.4-6.5); NEUT% 77.5 % (42.2-75.2); PLT 304 X1000 (130-400); RBC 3.69 XMIL (4.2-5.4); RDW 13.9 % (11.5-14.5); WBC 5.39 X1000 (4.8-10.8)
--- NOTE | 2019-01-25 06:48 | Diag Imaging Result Doc PS360 ---
EXAM: CHEST-PORTABLE HISTORY: dyspnea TECHNIQUE: Portable chest single view COMPARISON: 01/23/2019 FINDINGS: The lungs are hyperexpanded. The heart is not enlarged. The vessels are small. There are no infiltrates. No effusion identified. Scattered granuloma. IMPRESSION: Severe emphysema. Electronically signed by [employer] 01/25/2019 6:45 AM
[2019-01-25 07:08] LABS: ESTIMATED GFR > 60
[2019-01-25 07:24] LABS: AGAP 8; ALB/GLOB RATIO 1.7; ALBUMIN 3.8 g/dL (3.5-5.0); ALKALINE PHOSPHATASE 64 U/L (32-104); BUN 16 mg/dL (8-22); CALCIUM 9.1 mg/dL (8.8-10.2); CHLORIDE 85 mmol/L (98-107); COSMO 247; CREATININE 0.3 mg/dL (0.5-0.9); GLUCOSE 99 mg/dL (70-104); GOT 29 U/L (10-30); GPT 39 U/L (10-36); SODIUM 122 mmol/L (136-145); TCO2 29 mmol/L (25-35); TOTAL BILIRUBIN 0.31 mg/dL (0.20-1.00)
[2019-01-25] MEDS: ADVAIR 250/50 DISKUS INH SCH ×2 (08:01→19:50)
[2019-01-25] MEDS: SPIRIVA INH SCH (08:01)
[2019-01-25] MEDS: MAXIPIME 1 GM in NS 50 ML IV SCH ×2 (10:29→20:35)
[2019-01-25] MEDS: MORPHINE IV PRN ×2 (10:30→18:31)
[2019-01-25] MEDS: ZANTAC PO SCH ×3 (10:30→20:36)
[2019-01-25] MEDS: NICODERM PATCH TD SCH (10:30)
[2019-01-25] MEDS: EFFEXOR XR PO SCH (10:30)
--- NOTE | 2019-01-25 12:56 | PROGRESS NOTE ---
DATE: 01/25/2019 SUBJECTIVE: This morning Ms. Lambert refers to be doing a little better. She said she is breathing a lot better. She has been able to get up, use the restroom, and get back. However, after that she got extremely tired. She is still coughing but not bringing up any cold. OBJECTIVE: Vital Signs: Blood pressure 127/79, pulses 80, respirations 18, and temperature 98.5 degrees. General: Ms. Lambert is a 68-year-old female. She is in a sitting position and tripod position. HEENT: Mucosa is pink and moist. Anicteric. Acyanotic. Neck: Supple. Chest: Air entry is bilaterally reduced. It is more reduced on the left side. There is mild faint wheezing bilaterally. Cardiovascular: Regular rate and rhythm. No murmurs, no rubs, no gallops. Abdomen: Soft and nontender. Bowel sounds are present. There is no hepatosplenomegaly. Extremities: No pedal edema. Distal pulses present. SUPERVISOR SPECIAL EDUCATION: Patient is awake, alert, and oriented. There is no focal neurological deficit. LABORATORY DATA: WBC is 5.39, hemoglobin is 11.3, and platelet count of 304,000. Chemistry is also reviewed. Sodium is 122. Rest of chemistry is unremarkable. IMAGING STUDIES: Chest x-ray this morning shows severe emphysema with hyperexpanded lungs. No consolidation. ASSESSMENT: 1. Acute on chronic hypoxemic respiratory failure secondary to COPD exacerbation. We will continue with oxygen titration. 2. End-stage COPD in severe exacerbation. We will continue with bronchodilation steroids and antibiotic therapy. Respiratory therapy and Pulmonary Medicine are on board. 3. Ongoing tobacco abuse. Patient has been counseled. 4. GERD. We will continue with PPI. 5. Pulmonary cachexia noted. 6. Hyponatremia. We will do urine studies to better classify this, and treat it accordingly. In general, Ms. Lambert seems to be doing better. We will continue with the current standard of care for the COPD exacerbation. Continue with respiratory therapy management and also get physical therapy to start working with her. cc: Harley Baugh MD [facility]ENTER[facility]in[facility]
--- NOTE | 2019-01-25 20:25 | PULMONOLOGY PROGRESS NOTE ---
DATE: 01/25/2019 SUBJECTIVE: The patient is awake, alert, and conversant. She reports her breathing has improved today. She has received some morphine for air hunger. OBJECTIVE: Vital Signs: Blood pressure 142/77, heart rate 83, respiratory rate 20, oxygen saturation 98% on 3 L per nasal cannula. HEENT: Pupils are equal and reactive. Oropharynx is clear. Neck: Supple. Chest: Skeletal in appearance. Cardiac: Regular rate. Normal S1, normal S2. Abdomen: Scaphoid and soft. Extremities: Without edema. LABORATORIES: White blood count 5.39, hemoglobin 11.3, platelet count 304,000. Sodium 122, potassium 4.0, chloride 85, bicarbonate 29, BUN 16, creatinine 0.3. Chest x-ray reveals severe emphysematous changes with hyperinflation, thinning of the vessels. IMPRESSION: A 68-year-old with severe chronic obstructive pulmonary disease with: 1. Chronic obstructive pulmonary disease exacerbation. 2. Chronic hypoxemia. 3. Pulmonary cachexia, with a BMI of 13. 4. Ongoing tobacco use. 5. Hyponatremia. RECOMMENDATIONS: 1. Continue oxygen for hypoxemic respiratory failure. 2. Continue bronchial hygiene. 3. Continue antibiotics and steroids. 4. Consider fluid restriction if sodium remains low. 5. Smoking cessation has been strongly recommended. cc: Michael Esparza MD
[2019-01-26] MEDS: SOLU-MEDROL IV SCH ×3 (02:43→13:59)
[2019-01-26] MEDS: DUONEB (A & A) INH SCH ×5 (05:03→23:39)
[2019-01-26] MEDS: MORPHINE IV PRN ×4 (05:35→18:13)
[2019-01-26 07:09] LABS: HEMATOCRIT 36.9 % (37.0-47.0); HEMOGLOBIN 12.9 g/dL (12.0-16.0); LYMPH# 0.57 X1000 (1.2-3.4); LYMPH% 10.5 % (20.5-51.1); MCH 31.1 PG (27-31); MCV 88.9 FL (81-99); MONO# 0.77 X1000 (0.11-0.59); MONO% 14.2 % (1.7-9.3); MPV 9.7 FL (7.4-10.4); NEUT% 75.3 % (42.2-75.2); PLT 323 X1000 (130-400); RBC 4.15 XMIL (4.2-5.4); RDW 14.2 % (11.5-14.5); WBC 5.44 X1000 (4.8-10.8)
[2019-01-26 07:58] LABS: ESTIMATED GFR > 60
[2019-01-26 08:03] LABS: AGAP 7; BUN 16 mg/dL (8-22); CALCIUM 9.5 mg/dL (8.8-10.2); CHLORIDE 88 mmol/L (98-107); COSMO 258; CREATININE 0.4 mg/dL (0.5-0.9); GLUCOSE 95 mg/dL (70-104); POTASSIUM 4.4 mmol/L (3.5-5.1); SODIUM 128 mmol/L (136-145); TCO2 33 mmol/L (25-35)
[2019-01-26] MEDS: ADVAIR 250/50 DISKUS INH SCH ×2 (08:09→23:39)
[2019-01-26] MEDS: SPIRIVA INH SCH (08:09)
[2019-01-26] MEDS: ZANTAC PO SCH ×2 (10:01→23:42)
[2019-01-26] MEDS: EFFEXOR XR PO SCH (10:01)
[2019-01-26] MEDS: MAXIPIME 1 GM in NS 50 ML IV SCH (10:01)
[2019-01-26] MEDS: FLONASE NAS SCH (10:02)
[2019-01-26] MEDS: NICODERM PATCH TD SCH (10:02)
--- NOTE | 2019-01-26 13:46 | PROGRESS NOTE ---
DATE: 01/26/2019 SUBJECTIVE: This morning Ms. Lambert was sitting up on the chair at the bedside. She refers to be doing a little better. Breathing is getting better. OBJECTIVE: Vital Signs: Blood pressure is 134/78, pulse is 110, respirations 18, temperature 98.6 degrees. General: Ms. Lambert is a 68-year-old female. She was sitting up in a chair, was mild respiratory distress. HEENT: Mucosa is pink and moist. Anicteric. Acyanotic. Neck: Supple. Chest: Air entry is bilaterally reduced. There is still some end expiratory mild wheezing and some crackles in the posterior lung gee. There is a prolonged expiratory phase of respiration. Cardiovascular: Regular rate and rhythm. No murmurs, no rubs, no gallops. GI: Abdomen is soft, nontender. Bowel sounds present. Extremities: No pedal edema. Distal pulses present. LABORATORY DATA: WBC is 5.44, hemoglobin is 12.9, platelet count of 325,000. Chemistry is also reviewed. Sodium is 128. CURRENT MEDICATIONS: Have all been reviewed. She is on cefepime and vancomycin. She is also getting IV steroids and nebulizations. ASSESSMENT: 1. Acute on chronic hypoxemic respiratory failure secondary to COPD exacerbation improving. 2. End-stage COPD with severe exacerbation. We will continue with bronchodilation therapy, steroids and antibiotics. Pulmonary Medicine is on board. 3. Ongoing tobacco abuse. Patient has been counseled, currently on nicotine patch. 4. GERD. We will continue with PPI. 5. Pulmonary cachexia. 6. Hyponatremia improving. cc: Harley Baugh MD
[2019-01-26] MEDS: XANAX PO PRN (17:15)
[2019-01-26] MEDS: VANCOMYCIN 1 GM/NS 1 GM/250 ML IVPB IV SCH (18:12)
--- NOTE | 2019-01-26 22:27 | PULMONOLOGY PROGRESS NOTE ---
DATE: 01/26/2019 SUBJECTIVE: The patient is awake, alert and conversant. She reports she feels better today. She has less dyspnea. Her appetite has improved. OBJECTIVE: Vital Signs: The patient has been afebrile for the last 24 hours. Blood pressure 101/73, heart rate 106, respiratory rate 16, oxygen saturation 94% on nasal cannula. HEENT: Pupils are equal and reactive. Oropharynx is clear. Neck: Supple. Chest: Reveals prolonged expiratory phase without wheezing or rhonchi. Cardiac exam: S1, S2. Abdomen: Scaphoid and soft. Extremities: Are without edema. LABORATORIES: Chemistry: Sodium 128, potassium 4.4, chloride 88, bicarbonate 33, BUN 16, creatinine 0.4. White blood count 5.44, hemoglobin 12.9, platelet count 323,000. IMPRESSION: A 68-year-old with: 1. Advanced chronic obstructive pulmonary disease. 2. Pulmonary cachexia. 3. Ongoing tobacco use. 4. Chronic obstructive pulmonary disease exacerbation with acute on chronic hypoxemic respiratory failure. RECOMMENDATIONS: 1. Continue oxygen for hypoxemic respiratory failure. 2. Continue steroids, bronchodilators and antibiotics. 3. Counseled about the importance of smoking cessation. 4. Fluid restriction for hyponatremia. 5. Check a TSH and free T4 level. The patient's cachexia is most likely pulmonary related, but she only has mild CO2 retention, even during exacerbation. cc: Michael Esparza MD
[2019-01-27] MEDS ORDERED: MORPHINE IV PRN (00:26)
[2019-01-27] MEDS ORDERED: MOTRIN PO PRN (00:30)
[2019-01-27] MEDS: MAXIPIME 1 GM in NS 50 ML IV SCH ×3 (01:28→15:35)
[2019-01-27] MEDS: SOLU-MEDROL IV SCH ×3 (01:29→15:36)
[2019-01-27] MEDS: FLONASE NAS SCH ×2 (01:29→15:33)
[2019-01-27] MEDS: NORCO-5 PO PRN ×3 (03:45→15:34)
[2019-01-27] MEDS: DUONEB (A & A) INH SCH ×5 (03:49→23:12)
[2019-01-27] MEDS: XANAX PO PRN (06:07)
[2019-01-27] MEDS: VANCOMYCIN 1 GM/NS 1 GM/250 ML IVPB IV SCH ×2 (06:09→19:47)
[2019-01-27] MEDS: SPIRIVA INH SCH (07:30)
[2019-01-27] MEDS: ADVAIR 250/50 DISKUS INH SCH ×2 (07:30→23:11)
[2019-01-27] MEDS: NICODERM PATCH TD SCH ×2 (07:50→15:35)
[2019-01-27] MEDS: ZANTAC PO SCH ×2 (07:50→15:35)
[2019-01-27] MEDS: EFFEXOR XR PO SCH ×2 (07:50→15:35)
[2019-01-27] MEDS ORDERED: HALDOL IV PRN (13:17)
--- NOTE | 2019-01-27 14:09 | PROGRESS NOTE ---
DATE: 01/27/2019 SUBJECTIVE: Today Ms. Lambert refers to be doing okay. However, she was standing up at the bedside, covered in the petition garment. She says that this does the most comfortable position for her to take breaths. She seems more agitated, but she is reasonable in her thought process. At one point, she said the nurses wanted to take away her inhaler, and she is not going to let them take it from her. OBJECTIVE: Vital signs: This morning blood pressure is 144/88, pulse is 83, respiration is 16, temperature is 97.4 degrees. On general exam, Ms. Lambert is a 68-year-old female. She was standing up. She seems to still be in some distress. Mucosa is pink and moist. Anicteric. Acyanotic. Neck is supple. Chest still has bilateral air entry reduced with wheezing and prolonged expiratory phase of respiration. Cardiovascular: Slightly tachycardic, but no murmurs, no rubs, no gallops. Gastrointestinal: Abdomen was soft. Extremities: No pedal edema. Central Nervous System: Patient is awake, alert. Follows basic commands. Psychiatric: The patient was less cooperative today than days before. She seems more anxious and agitated. MEDICATIONS: Have all been reviewed. ASSESSMENT: 1. Acute on chronic hypoxemic respiratory failure secondary to chronic obstructive pulmonary disease exacerbation. 2. End-stage chronic obstructive pulmonary disease with severe exacerbation. Patient is on standard of care. Pulmonary Medicine is on board. 3. Tobacco abuse. She has been counseled. 4. Gastroesophageal reflux disease. We will continue with PPI. 5. Pulmonary cachexia. 6. Hyponatremia, improving. 7. Delirium associated with some hallucination and agitation. Unsure if it is medication, like steroid, induced or something else. We will review her medication list, avoid anything that has potential to cause delirium. Rule out any possible infection as well, and we will start the patient on very low-dose Haldol and see if that helps. cc: Harley Baugh MD
--- NOTE | 2019-01-27 19:56 | PULMONOLOGY PROGRESS NOTE ---
DATE: 01/27/2019 SUBJECTIVE: Patient's nurse reports she has had some outburst with periods of confusion. She initially did not want me to touch her during the exam but did agree after I requested again. She then said she was not going to wear her oxygen if she did not want to. OBJECTIVE: Vital Signs: The patient has been afebrile for the last 24 hours. BP 145/88, heart rate 72, oxygen saturation 98% on nasal cannula. HEENT: Pupils are equal and reactive. Oropharynx is clear. Neck: Is supple. Chest: Reveals prolonged expiratory phase with markedly diminished breath sounds bilaterally. Cardiac: S1-S2. Abdomen: Is soft. Extremities: Without edema. IMPRESSION: A 68-year-old with 1. Advanced chronic obstructive pulmonary disease. 2. Pulmonary cachexia. 3. Acute on chronic hypoxemic respiratory failure. 4. Ongoing tobacco use. 5. Delirium. RECOMMENDATION: 1. Continue oxygen for hypoxemic respiratory failure. 2. Continue bronchodilators and antibiotics. 3. Recommend initiate steroid taper. Would consider switching her to 15 mg of prednisone to begin 01/28/2019. 4. Overall prognosis is guarded. cc: Michael Esparza MD
[2019-01-28] MEDS: FLONASE NAS SCH ×2 (00:08→09:30)
[2019-01-28] MEDS: ZANTAC PO SCH ×3 (00:09→22:58)
[2019-01-28] MEDS: MAXIPIME 1 GM in NS 50 ML IV SCH ×3 (00:09→22:58)
[2019-01-28] MEDS: SOLU-MEDROL IV SCH ×4 (00:09→22:58)
[2019-01-28] MEDS: DUONEB (A & A) INH SCH ×6 (03:26→23:20)
[2019-01-28] MEDS: VANCOMYCIN 1 GM/NS 1 GM/250 ML IVPB IV SCH ×2 (04:22→14:06)
[2019-01-28 07:16] LABS: HEMATOCRIT 37.5 % (37.0-47.0); HEMOGLOBIN 13.5 g/dL (12.0-16.0); IMM GRAN# 0.03 X1000 (0.0-0.04); IMM GRAN% 0.3 % (0.0-0.5); LYMPH# 0.66 X1000 (1.2-3.4); MCH 31.1 PG (27-31); MCV 86.4 FL (81-99); MONO# 0.97 X1000 (0.11-0.59); MONO% 8.8 % (1.7-9.3); MPV 10.1 FL (7.4-10.4); NEUT# 9.35 X1000 (1.4-6.5); NEUT% 84.9 % (42.2-75.2); PLT 327 X1000 (130-400); RBC 4.34 XMIL (4.2-5.4); RDW 13.4 % (11.5-14.5); WBC 11.01 X1000 (4.8-10.8)
[2019-01-28 07:20] LABS: AGAP 15; BUN 39 mg/dL (8-22); CALCIUM 10.9 mg/dL (8.8-10.2); CHLORIDE 81 mmol/L (98-107); COSMO 250; CREATININE 0.5 mg/dL (0.5-0.9); ESTIMATED GFR > 60; GLUCOSE 61 mg/dL (70-104); POTASSIUM 5.2 mmol/L (3.5-5.1); TCO2 24 mmol/L (25-35)
[2019-01-28 07:29] LABS: SODIUM 120 mmol/L (136-145)
[2019-01-28] MEDS: ADVAIR 250/50 DISKUS INH SCH ×2 (08:02→21:11)
[2019-01-28] MEDS: SPIRIVA INH SCH (08:03)
[2019-01-28] MEDS: NICODERM PATCH TD SCH (09:28)
[2019-01-28] MEDS: EFFEXOR XR PO SCH (09:30)
--- NOTE | 2019-01-28 10:05 | Diag Imaging Result Doc PS360 ---
EXAM: CHEST-PORTABLE HISTORY: dyspnea TECHNIQUE: Chest single view COMPARISON: 01/25/2019 FINDINGS: The lungs are hyperexpanded. The vessels are small. No cardiomegaly. There are scattered granuloma. No infiltrates. No pleural effusions identified. IMPRESSION: Severe emphysema. Electronically signed by [employer] Nelson 01/28/2019 10:03 AM
[2019-01-28] MEDS ORDERED: SAMSCA PO ONE (10:45)
[2019-01-28 12:21] LABS: ALLEN TEST YES; BE 0.5 mmoll (-3.0-3.0); BLOOD TYPE ARTERIAL; HCO3-(ACT) 25.1 mmoll (20.0-26.0); METHB 0.9 % (0.0-1.5); MODALITY ROOM AIR; O2(CT) 17.5 mL/dL (15.0-23.0); PCO2(98.6) 41 mmHg (35-45); PO2(98.6) 56 mmHg (60-100); SAMPLE BLOOD; SAO2 91.3 % (95.0-100.0)
[2019-01-28 12:25] LABS: O2HB 89.2 % (95.0-99.0)
[2019-01-28] MEDS ORDERED: NS 1,000 ML IV SCH (12:30)
--- NOTE | 2019-01-28 13:22 | PROGRESS NOTE ---
DATE: 01/28/2019 SUBJECTIVE: This morning Ms. Lambert continues to be remarkably delusional. She is sitting down on the floor in only her panties. She is naked from the top. However, she says she is doing okay and that is how she feels she want to be. She knows where she is, and at one point she actually requested that I discharge her. OBJECTIVE: Vital signs: Blood pressure is 139/98, pulse is 103, respirations 18, and saturation was about 96 on room air. General: Ms. Lambert is 68-year-old female. She was sitting on the floor with only her panties. No clothes on the top. She is remarkably malnourished and cachectic. She will still have some difficulty breathing, but she was not using any oxygen. Mucosa was pink and moist. Anicteric. Acyanotic. Neck: Supple. Chest: Air entry is bilaterally reduced. I did not hear any wheezing, but there was a prolonged expiratory phase of respiration. Cardiovascular: Regular rate and rhythm. No murmurs. Abdomen: Soft. Extremities: A trace of pedal edema. SCRAP DROP ENGINEER: Patient is awake and alert. Follows basic commands. Psychiatric: Patient was cooperative, however, she was cooperative to physical exams after multiple requests. She seemed a little calmer today than yesterday. She was very coherent with some interrogations. She was extremely tangential. She did not express any hallucinations this morning. LABORATORY DATA: WBC was 11.01, hemoglobin is 13.5, and platelet count of 327,000. ABG shows a PO2 of 56 on room air. Sodium is 120, potassium is 5.2, chloride is 81, bicarb is 24, BUN went up to 38. Creatinine is still normal. Calcium is 10.9. ASSESSMENT: 1. Acute on chronic hypoxemic respiratory failure secondary to COPD exacerbation. 2. End-stage COPD with severe exacerbation. We will continue with the current standard of care. Pulmonary Medicine is on board. 3. Tobacco abuse. Pulmonary cachexia. 4. Hyponatremia. This has gotten worse because patient does not allow treatment. 5. Delirium associated with the hallucination and agitation, questionable for delusional disorder. The patient at this point does not want any medication to be given to her. I have spoken extensively this morning with the son and the daughter in law, and they are also going to go back and talk to Ms. Lambert, and then get back to me if they will be able to convince her to allow medication management to proceed. cc: Harley Baugh MD
[2019-01-28 17:08] LABS: ESTIMATED GFR > 60
[2019-01-28 17:24] LABS: AGAP 13; BUN 42 mg/dL (8-22); CALCIUM 10.4 mg/dL (8.8-10.2); CHLORIDE 84 mmol/L (98-107); COSMO 256; CREATININE 0.5 mg/dL (0.5-0.9); GLUCOSE 84 mg/dL (70-104); POTASSIUM 4.6 mmol/L (3.5-5.1); SODIUM 122 mmol/L (136-145); TCO2 25 mmol/L (25-35)
[2019-01-29] MEDS: VANCOMYCIN 1 GM/NS 1 GM/250 ML IVPB IV SCH ×3 (03:51→16:43)
[2019-01-29] MEDS: SOLU-MEDROL IV SCH ×3 (05:15→22:22)
[2019-01-29] MEDS: DUONEB (A & A) INH SCH ×5 (05:56→19:45)
[2019-01-29 07:07] LABS: AGAP 13; ALBUMIN 3.8 g/dL (3.5-5.0); BUN 27 mg/dL (8-22); CALCIUM 9.2 mg/dL (8.8-10.2); CHLORIDE 92 mmol/L (98-107); COSMO 264; CREATININE 0.4 mg/dL (0.5-0.9); ESTIMATED GFR > 60; GLUCOSE 89 mg/dL (70-104); PHOSPHORUS 3.9 mg/dL (2.7-4.5); POTASSIUM 4.5 mmol/L (3.5-5.1); SODIUM 129 mmol/L (136-145); TCO2 24 mmol/L (25-35)
[2019-01-29] MEDS: ADVAIR 250/50 DISKUS INH SCH ×2 (07:41→20:24)
[2019-01-29] MEDS: SPIRIVA INH SCH (07:42)
[2019-01-29] MEDS: FLONASE NAS SCH (09:00)
[2019-01-29] MEDS: ZANTAC PO SCH ×2 (09:30→22:22)
[2019-01-29] MEDS: EFFEXOR XR PO SCH (09:30)
[2019-01-29] MEDS: MAXIPIME 1 GM in NS 50 ML IV SCH ×2 (09:31→22:22)
[2019-01-29] MEDS: NICODERM PATCH TD SCH (09:31)
--- NOTE | 2019-01-29 12:44 | PROGRESS NOTE ---
DATE: 01/29/2019 SUBJECTIVE: She knows she is in the hospital. She is aware the month and the year. She is fidgety with her hands and repetitive motion. I do not see any tardive dyskinesia or smacking with her tongue or lips, but very anxious. OBJECTIVE: General: She is breathing comfortably. She has her oxygen on, although she has refused her oxygen at times. The blood pressure 136/51, pulse 68. Lungs: Clear in all lung gee. Cardiovascular: Regular rhythm and rate without murmur or S3. Abdomen: Soft. Skin: Warm and dry. ASSESSMENT AND PLAN: 1. Acute on chronic hypoxemic respiratory failure secondary to chronic obstructive pulmonary disease exacerbation. 2. End-stage chronic obstructive pulmonary disease with severe asthma exacerbation. Part of it is probably not wearing her oxygen. 3. Tobacco use. Continue to encourage smoking cessation. 4. She has pulmonary cachexia. Try and encourage her to eat a little better. 5. Hyponatremia, which is mild. Continue to make adjustments. 6. Delirium, hallucination, agitation, and I suspect it is medication withdrawal. I think she was on benzodiazepines and pain medicines. HOME MEDICATIONS: 1. Her list of home medication, she was on: 2. [place] 5s, not sure how often she was taking them. 3. Zantac 150 mg b.i.d. 4. She is on Effexor 150 mg a day. 5. Her alprazolam was 0.25 b.i.d. p.r.n. I am going to put her on Alprazolam because I suspect she is going through benzodiazepine withdrawal and so right now she is getting this p.r.n. 0.25 b.i.d. 6. He is on Effexor XR 150 mg daily. 7. She is getting some antibiotics vancomycin. 8. She is getting methylprednisone 40 mg IV q.8. PLAN: I do not know if there is any other withdrawal. I think what I will try to do is give her 0.5 of Ativan IV q.6 and see if it will help. Her sodium is 129, so that is improved. Looking at her medications, she is on cefepime and she is on vancomycin. Looking at her x-ray from yesterday, severe emphysema but no definite infiltrate. cc: Primitivo Zavala MD
[2019-01-29] MEDS: ATIVAN IV SCH ×3 (14:00→22:21)
--- NOTE | 2019-01-29 17:06 | PROVIDER DOCUMENTATION ---
This chart was entered by Lexie King Scribe, acting as scribe for Maxx Patel MD. HPI-Respiratory General - General Chief Complaint: Shortness of Breath Stated Complaint: COPD Time Seen by Provider: 01/23/19 10:18 Source: patient, family Allergies/Adverse Reactions: Patient Allergies Allergy/AdvReac Type Severity Reaction Status Date / Time diclofenac Allergy HEADACHE Verified 01/16/19 20:53 doxycycline Allergy SWELLING Verified 01/16/19 20:53 gluten Allergy Unknown Verified 01/23/19 17:13 Tetanus Vaccines and Toxoid Allergy ANAPHYLAXIS Verified 01/16/19 20:53 [Tetanus Vaccines & Toxoid] propoxyphene HCl * AdvReac Unknown Verified 01/23/19 10:11 [From Rigoberto] Home Medications: Home Medication List Medication Instructions Recorded Confirmed Last Taken Type Tiotropium [place] Inhaler 1 puff INH RTDAILY 11/29/14 01/23/19 12/13/18 History [Spiriva] Albuterol Sulfate [Proventil Hfa] 6.7 gm IH 2-4XDAY PRN PRN 11/28/18 01/23/19 12/13/18 History Alprazolam [Xanax] 0.25 mg PO BID PRN PRN 11/28/18 01/23/19 12/13/18 History Fluticasone/[place] 250/50 INH 1 puff INH RTBID 11/28/18 01/23/19 12/13/18 History [Advair 250/50 Diskus] Ibuprofen [Advil Migraine] 400 - 600 mg PO Q4-6H PRN PRN 11/28/18 01/23/19 12/13/18 History Ipratropium/Albuterol Sulfate 3 ml IH Q6HR PRN 11/28/18 01/23/19 12/13/18 History [Iprat-Albut 0.5-3(2.5) mg/3 ml] Ranitidine HCl [Zantac] 150 mg PO BID 11/28/18 01/23/19 12/13/18 History Venlafaxine HCl [Effexor Xr] 150 mg PO DAILY 11/28/18 01/23/19 12/13/18 History Prednisone 20 mg PO BID #10 tab 01/16/19 01/23/19 Unknown Rx Calcium Carbonate/Vitamin D3 1 ea PO DAILY 01/24/19 01/24/19 01/23/19 08:00 History [Calcium 600 + Vit D Tablet] Fluticasone 50 Mcg Nasal [place] 1 spray INTRANASAL DAILY 01/24/19 01/24/19 01/23/19 08:00 History [Flonase] Hydrocortisone Supp [Anusol-Hc 25 mg MA BID 01/24/19 01/24/19 12/24/18 21:00 History Supp] Mv-Mn/Folic Acid/Calcium/Vit K 1 ea PO DAILY 01/24/19 01/24/19 01/23/19 08:00 History [Women's 50 Plus Daily Formula] Hydrocodone/APAP 5 mg/325 mg 1 ea PO Q4H PRN PRN #20 tab 01/27/19 Unknown Rx [[place]-5] Levofloxacin [Levaquin] 500 mg PO DAILY #7 tab 01/27/19 Unknown Rx - History of Present Illness-Resp Nature of Presenting Problem: 68 yowf presents to the ed with c/o sob. pt sts has copd and took a neb tx at 0800am but has not relieved sx. pt is toxic in appearance and speaks in 2-3 word sentences. Quality of Pain: reports: fullness Severity in ED: reports: moderate Onset/Duration: reports: 2 days ago Timing: reports: still present, getting worse Context: reports: recent URI Cough Quality/Degree: reports: moderate, productive cough Episode Frequency: chronic episodes Current Respiratory Medication Therapy: Initiated see nurses note Modifying Factors: improves with: oxygen, sitting upright. worse with: exertion, lying down Associated Symptoms: reports: cough, hurts to breathe, shortness of breath, wheezing Similar Symptoms Previously?: Yes Recently seen or treated by another doctor?: No Review of Systems - Adult - REVIEW OF SYSTEMS - ADULT ROS:: limited per condition Constitutional: reports: see HPI, chills, fatique Eyes: reports: no symptoms reported Ears, Nose, Mouth & Throat: reports: no symptoms reported Cardiovascular: denies: chest pain, palpitations Respiratory: reports: see HPI, cough, dyspnea on exertion, excessive sputum production, shortness of breath, wheezing Gastrointestinal: denies: abdominal pain, diarrhea, nausea, vomiting Genitourinary: reports: no symptoms reported Musculoskeletal: denies: back pain, neck pain Integumentary: reports: no symptoms reported Neurological: reports: no symptoms reported Psychiatric: reports: no symptoms reported Endocrine: reports: no symptoms reported Hematologic/Lymphatic: reports: no symptoms reported Allergic/Immunologic: reports: no symptoms reported All Other Systems: Reviewed and Negative Past History - Adult - PAST MEDICAL HISTORY-ADULT Review of Records: reports: Old Records Reviewed, Nursing Assessment Review, Medications Reviewed, Social history reviewed & non-contributory. Major Childhood Illnesses: reports: denies history Cardiovascular: reports: denies history Respiratory: reports: COPD, pneumonia, sleep apnea Gastrointestinal: reports: GERD Obstetrical/Gynecological: reports: denies history Genitourinary: reports: denies history Musculoskeletal: reports: arthritis, chronic pain Neurological: reports: headaches/migraines Psychiatric: reports: depression Endocrine/Immune: reports: Diabetes Diabetes Type: Type 2 Other Conditions: reports: denies history - PRIOR SURGERIES/PROCEDURES Surgical/Procedure History: reports: BTL, tonsillectomy, hernia repair - PRIOR HOSPITALIZATIONS Prior Hospitalizations: reports: for other non-related - IMMUNIZATION STATUS Childhood Immunizations: See Nurse Assessment Flu Vaccine: See Nurse Assessment - FAMILY HISTORY Family History: reviewed, not pertinent - SOCIAL HISTORY Smoking: cigarettes, less than 1 pack/day Provider spent 3-5 mins advising pt. on dangers of tobacco.: Discussed manners to quit use, and f/u contacts for add'l counseling. Substance Use: denies Alcohol Use Frequency: never Living Situation: family Physical Exam-General - PHYSICAL EXAM-ADULT Initial Vital Signs Reviewed: Yes - CONSTITUTIONAL General Appearance: alert, moderate distress, thin. negative: appears well - EYES Eyes: PERRL/EOMI - HEAD, EARS, NOSE, MOUTH & THROAT HENMT: negative: moist mucous membranes (dry) - NECK Neck: full range of motion, normal inspection - RESPIRATORY Respiratory: respiratory distress, decreased breath sounds, accessory muscle use , wheezing, increased rate (30) - CARDIOVASCULAR Cardiovascular: normal peripheral pulses, tachycardia (104) - GASTROINTESTINAL (ABDOMEN) Abdominal Exam: normal bowel sounds, soft - LYMPHATIC Lymphatic: no adenopathy - MUSCULOSKELETAL Back Exam: normal inspection Extremity: normal range of motion, non-tender, normal gait, normal inspection - SKIN Integumentary: warm/dry, pallor - NEUROLOGIC Neurologic: grossly normal - PSYCHIATRIC Psych/Mental Status: oriented x 3, anxious - HEART Score HEART Score: History: Slightly Suspicious HEART Score: ECG: Non-Specific Repolarization Disturbance/LBBB/PM HEART Score: Age: > or = 65 Years HEART Score: Risk Factors for Atherosclerotic Disease: 1 or 2 Risk Factors HEART Score: Troponin: < or = Normal Limit Total HEART Score:: 4 Progress - PLAN OF CARE/RESULTS Progress/Plan/Lab Results: Orders Category Date Time Status Admit - [facility] Routine AdmDCTranf 01/23/19 13:31 Active Activity - Up with Assistance ORDERED Care 01/23/19 13:31 Active Cardiac Monitoring DIRECTED Care 01/23/19 10:09 Completed Intake and Output-Strict ORDERED Care 01/23/19 13:31 Active Oxygen Therapy- ED Nursing DIRECTED Care 01/23/19 10:09 Completed Saline Loc NOW Care 01/23/19 10:09 Active Vital Signs Order Q 8-HR ASSESS Care 01/23/19 13:31 Active Z-Document. for Tele Applied ORDERED Care 01/23/19 13:31 Completed CHEST-2 VIEWS [RAD] Stat Exams 01/23/19 10:09 Completed ABG [RESP] Routine Lab 01/23/19 11:33 Completed CBC WITH DIFF [HEME] Routine Lab 01/24/19 05:50 Completed CBC WITH ELECTRONIC DIFF [HEME] Stat Lab 01/23/19 10:33 Completed CK PROFILE [SP CHEM] Stat Lab 01/23/19 10:33 Completed COMPREHENSIVE METABOLIC PANEL [CHEM] Routine Lab 01/24/19 05:50 Completed COMPREHENSIVE METABOLIC PANEL [CHEM] Stat Lab 01/23/19 10:33 Completed PRO B-NATRIURETIC PEPTIDE Stat Lab 01/23/19 10:33 Completed PROTIME WITH INR [COAG] Stat Lab 01/23/19 10:33 Completed PTT [COAG] Stat Lab 01/23/19 10:33 Completed TROPONIN T Stat Lab 01/23/19 10:33 Completed 0.9% Sodium Chloride Inj [Ns] 1,000 ml Med 01/23/19 13:51 Discontinued IV 75 mls/hr Acetaminophen [Tylenol] Med 01/23/19 13:31 Discontinued 650 mg PO Q6H PRN PRN Albuterol 2.5MG/Ipratrop 0.5MG [Duoneb (A & A)] Med 01/23/19 10:44 Discontinued 3 ml INH NOW ONE Albuterol 2.5MG/Ipratrop 0.5MG [Duoneb (A & A)] Med 01/23/19 13:32 Active 3 ml INH Q2H PRN PRN Albuterol 2.5MG/Ipratrop 0.5MG [Duoneb (A & A)] Med 01/23/19 15:30 Active 3 ml INH RTQ4H Alprazolam [Xanax] Med 01/23/19 13:34 Active 0.25 mg PO BID PRN PRN Lorazepam [Ativan] Med 01/23/19 10:44 Discontinued 0.5 mg IV NOW ONE Methylprednisolone Sod Succ [Solu-Medrol] Med 01/23/19 10:44 Discontinued 125 mg IV NOW ONE Methylprednisolone Sod Succ [Solu-Medrol] Med 01/23/19 13:45 Discontinued 60 mg IV Q8H Omeprazole [Prilosec] Med 01/24/19 07:00 Discontinued 40 mg PO DAILY@0700 Ondansetron [Zofran] Med 01/23/19 13:31 Active 4 mg IV Q4H PRN PRN Aerosol Treatments Routine Oth 01/23/19 10:45 Completed Aerosol Treatments Routine Ot 01/23/19 13:32 Completed Aerosol Treatments Stat Ot 01/23/19 10:45 Completed Aerosol Treatments Stat Ot 01/23/19 13:32 Completed CP/SOB/Palp >45 yrs of Age Stat Ot 01/23/19 10:08 Ordered Oxygen Device Routine Ot 01/23/19 13:35 Completed Telemetry [OM.EQ] Routine Oth 01/23/19 13:31 Active Transfer/Admit Order [TRANSFER] Routine Transfer 01/23/19 13:36 Completed Result Diagrams: 01/28/19 06:00 01/29/19 05:54 - REASSESSMENT Reassessment #1 Time Reassessed: 11:01 Status: unchanged Reassessment Comment: at bedside Reassessment #2 Time Reassessed: 11:53 Status: unchanged - XRAY 1 XRAY: Bilateral XRAY Study: Chest Impression: See EMR Report (EXAM: CHEST-2 VIEWS HISTORY: SOB TECHNIQUE: Chest two views COMPARISON: 01/16/2019 FINDINGS: The lungs are hyperexpanded. The heart is not enlarged. The vessels are small. There are no infiltrates. No pleural effusions. There are scattered granuloma. IMPRESSION: Severe emphysema. Electronically signed by Grupo Nelson 01/23/2019 10:45 AM 01/23/19 1045 Interpreting Physician: Grupo Nelson MD Dictated Date/Time: 01/23/19 1044 cc: Maxx Patel MD; Orion Freire MD) - CONSULTS/PCP/HOSPITALIST Notification #1 *Consult/PCP/Hospitalist*: hospitalist dr bradshaw Time Discussed: 11:55 Reason/Comments: sob Consult Disposition: Admit Departure - Departure Date of Disposition Decision: 01/23/19 Time of Disposition Decision: 11:54 DIAGNOSIS: COPD exacerbation, Hyponatremia, Tobacco use disorder Congestive heart failure Qualifiers: Heart failure type: unspecified Heart failure chronicity: chronic Qualified Code(s): I50.9 - Heart failure, unspecified Disposition: ADMITTED INPATIENT 09 Certified Medical Emergency: Emergent Condition: Stable - Critical Care Note This patient required my direct & personal management of CC.: Yes Total Time (mins): 36 Critical Care Statement: This patient required my direct personal management to treat or rule out processes, the absence of which, could potentiallly result in sudden, clinically significant life or limb threatening deterioration. Attestation - Physician/ DAGOBERTO Attestation Patient care was provided by Advanced Practice Provider:: No The physician spent face to face time with patient:: Yes Advanced Practice Provider documentation review:: Supervising physician onsite and consulted in the evaluation and care of this patient. The physician did have a face to face encounter with the patient. This chart was documented by the indicated scribe, (Lexie King Scribe) and accurately reflects the services I performed and decisions made by me, Maxx Patel MD, as attested by the provider's signature.
[2019-01-30] MEDS: DUONEB (A & A) INH SCH ×7 (00:01→23:10)
[2019-01-30] MEDS: VANCOMYCIN 1 GM/NS 1 GM/250 ML IVPB IV SCH ×2 (01:49→14:26)
[2019-01-30] MEDS: SOLU-MEDROL IV SCH ×3 (05:10→22:37)
[2019-01-30] MEDS: ATIVAN IV SCH ×4 (05:10→16:10)
[2019-01-30] MEDS: ADVAIR 250/50 DISKUS INH SCH ×2 (07:53→19:10)
[2019-01-30] MEDS: SPIRIVA INH SCH (07:54)
[2019-01-30] MEDS: MAXIPIME 1 GM in NS 50 ML IV SCH ×2 (08:00→22:37)
[2019-01-30] MEDS: EFFEXOR XR PO SCH (08:01)
[2019-01-30] MEDS: ZANTAC PO SCH ×2 (08:01→22:37)
[2019-01-30] MEDS: NICODERM PATCH TD SCH (08:01)
[2019-01-30 11:23] LABS: AGAP 10; BUN 24 mg/dL (8-22); CALCIUM 9.4 mg/dL (8.8-10.2); CHLORIDE 95 mmol/L (98-107); COSMO 272; CREATININE 0.3 mg/dL (0.5-0.9); ESTIMATED GFR > 60; GLUCOSE 134 mg/dL (70-104); POTASSIUM 4.4 mmol/L (3.5-5.1); SODIUM 133 mmol/L (136-145); TCO2 28 mmol/L (25-35)
--- NOTE | 2019-01-30 12:10 | PROGRESS NOTE ---
DATE: 01/30/2019 SUBJECTIVE: She is awake and alert. She appears to be much calmer. She is not moving her hands and no rhythmic motion. I put her back on a regular dose of Ativan. I suspect a lot of her symptoms were from withdrawal from benzodiazepines. OBJECTIVE: Temperature 97.9 degrees, pulse 76, respirations 19, blood pressure 140/60. Pupils are equal and round. Lungs are clear in all lung gee with decreased breath sounds both bases. No wheezing going on right now. Cardiovascular exam has regular rhythm and rate without murmur or S3. Abdomen is soft. Skin is warm and dry. URINE OUTPUT: 1700 mL. ASSESSMENT AND PLAN: 1. Acute on chronic hypoxemic respiratory failure secondary to chronic obstructive pulmonary disease and exacerbation. 2. End-stage chronic obstructive pulmonary disease and a history of severe asthma. Does not have much in the way of bronchospasm right now and she is getting supplementary O2 and bronchodilators and seems to be doing better from the breathing standpoint. 3. Tobacco use. Encouraged tobacco cessation. 4. She has protein-calorie malnutrition and cachexia so encouraged her to try to eat. She was eating some breakfast this morning when I saw her. 5. Hyponatremia, which is improved. 6. Delirium, hallucinations, agitation. I suspect this is largely from medication withdrawal, particularly the benzodiazepines. This seems to be better. She wants to go home and wants to resume hospice care, and I think we will be ready hopefully on Monday; today is Monday. MEDICATION: For her breathing treatments, she is on DuoNeb. She is getting Xanax 0.25 mg b.i.d. p.r.n. and I have her on just routine Ativan 1 mg 4 times a day. She is getting methylprednisone 40 mg IV q.8 h, nicotine patch 21 mg a day, Zantac 150 mg b.i.d., tiotropium bromide 1 puff daily, she is getting vancomycin 1 g q.12 h., she is on Effexor ER 150 mg daily. FURTHER PLAN: We will repeat another chest x-ray in the morning and check CBC and electrolytes. cc: Primitivo Zavala MD
[2019-01-30] MEDS: FLONASE NAS SCH ×4 (15:05→20:35)
[2019-01-30] MEDS: VANCOMYCIN 1.4 GM in NS 250 ML IV SCH (16:04)
[2019-01-30] MEDS: XANAX PO PRN (18:38)
[2019-01-31] MEDS: DUONEB (A & A) INH SCH ×6 (03:10→23:10)
[2019-01-31] MEDS: VANCOMYCIN 1.4 GM in NS 250 ML IV SCH ×2 (03:12→17:09)
[2019-01-31] MEDS: ATIVAN IV SCH ×5 (03:16→17:10)
[2019-01-31] MEDS: XANAX PO PRN ×2 (03:20→23:41)
[2019-01-31 05:57] LABS: ALLEN TEST YES; BE 7.9 mmoll (-3.0-3.0); BLOOD TYPE ARTERIAL; HCO3-(ACT) 31.1 mmoll (20.0-26.0); METHB 0.2 % (0.0-1.5); O2(CT) 14.1 mL/dL (15.0-23.0); PCO2(98.6) 46 mmHg (35-45); PO2(98.6) 67 mmHg (60-100); SAMPLE BLOOD; SAO2 96.8 % (95.0-100.0); THB 10.5 g/dL (11.5-17.4); pH(98.6) 7.46 (7.35-7.45)
[2019-01-31 05:58] LABS: MODALITY ROOM AIR
[2019-01-31 07:06] LABS: AGAP 10; ALB/GLOB RATIO 1.6; ALBUMIN 3.3 g/dL (3.5-5.0); ALKALINE PHOSPHATASE 88 U/L (32-104); BASO# 0.01 X1000 (0.0-0.2); BASO% 0.1 % (0.0-0.8); BUN 17 mg/dL (8-22); CALCIUM 9.1 mg/dL (8.8-10.2); CHLORIDE 94 mmol/L (98-107); COSMO 265; CREATININE 0.2 mg/dL (0.5-0.9); ESTIMATED GFR > 60; GLUCOSE 107 mg/dL (70-104); GOT 183 U/L (10-30); GPT 134 U/L (10-36); HEMATOCRIT 32.1 % (37.0-47.0); IMM GRAN# 0.02 X1000 (0.0-0.04); IMM GRAN% 0.2 % (0.0-0.5); LYMPH# 0.24 X1000 (1.2-3.4); LYMPH% 2.7 % (20.5-51.1); MAGNESIUM 1.9 mg/dL (1.5-2.7); MCH 30.9 PG (27-31); MCHC 34.3 g/dL (33-37); MCV 90.2 FL (81-99); MONO# 1.04 X1000 (0.11-0.59); MONO% 11.5 % (1.7-9.3); NEUT# 7.71 X1000 (1.4-6.5); NEUT% 85.5 % (42.2-75.2); PLT 197 X1000 (130-400); POTASSIUM 4.4 mmol/L (3.5-5.1); RBC 3.56 XMIL (4.2-5.4); RDW 14.9 % (11.5-14.5); SODIUM 131 mmol/L (136-145); TCO2 27 mmol/L (25-35); TOTAL BILIRUBIN 0.36 mg/dL (0.20-1.00); TOTAL PROTEIN 5.3 g/dL (6.3-8.3); WBC 9.02 X1000 (4.8-10.8)
--- NOTE | 2019-01-31 07:21 | Diag Imaging Result Doc PS360 ---
EXAM: CHEST-1 VIEW 01/31/2019 HISTORY: SOB TECHNIQUE: AP portable at 0552 COMMENT: There are interstitial opacities bilaterally particularly in the left lower lobe. This is worse than on 01/28/2019. There are calcified nodes in the right hilum and calcified nodules in the right upper lobe and right lower lobe. There is probable COPD. IMPRESSION: Left lower lobe pneumonia. Electronically signed by Butch Del Rio 01/31/2019 7:19 AM
[2019-01-31] MEDS: SPIRIVA INH SCH (07:44)
[2019-01-31] MEDS: ADVAIR 250/50 DISKUS INH SCH ×2 (07:44→19:10)
[2019-01-31] MEDS: SOLU-MEDROL IV SCH ×2 (07:58→17:09)
[2019-01-31] MEDS: EFFEXOR XR PO SCH (08:56)
[2019-01-31] MEDS: NICODERM PATCH TD SCH (08:56)
[2019-01-31] MEDS: FLONASE NAS SCH ×2 (08:56→22:54)
[2019-01-31] MEDS: ZANTAC PO SCH ×2 (08:56→22:54)
[2019-01-31] MEDS: MAXIPIME 1 GM in NS 50 ML IV SCH ×2 (08:56→22:55)
--- NOTE | 2019-01-31 10:10 | PROGRESS NOTE ---
DATE: 01/31/2019 SUBJECTIVE: She is doing much better, awake, alert and oriented. She feels like she is ready to go home tomorrow breathing comfortably. OBJECTIVE: Temperature 97.4 degrees, pulse 95, respirations 16, and blood pressure 90/75. Pupils are equal and round. Lungs are clear in all lung gee. Cardiovascular exam with regular rhythm and rate without murmur or S3. Abdomen is soft. Skin is warm and dry. LABORATORY AND DIAGNOSTIC: Urine output is 1300 mL. Chest x-ray: Left lower lobe pneumonia. ASSESSMENT AND PLAN: 1. COPD, left lower lobe pneumonia, and COPD exacerbation, doing much better. 2. End-stage COPD and severe asthma. Moving air much better. Continue supplemental O2. 3. Tobacco use. Encourage tobacco cessation. She is on a nicotine patch. 4. Severe protein calorie malnutrition. She is eating very well while she is here now that she is awake. 5. Metabolic encephalopathy, delirium, and hallucinations, much better. I suspect this is from benzodiazepine withdrawals I hope so we can send her home tomorrow to go back home with hospice. 6. Her recent lab shows hematocrit stable at 32, hemoglobin 11 and electrolytes unremarkable. cc: Primitivo Zavala MD
[2019-01-31] MEDS: NORCO-5 PO PRN ×2 (14:38→23:38)
[2019-02-01] MEDS: ATIVAN IV SCH ×4 (03:07→16:51)
[2019-02-01] MEDS: DUONEB (A & A) INH SCH ×4 (03:10→15:02)
[2019-02-01] MEDS: SOLU-MEDROL IV SCH ×2 (03:27→10:31)
[2019-02-01] MEDS: VANCOMYCIN 1.4 GM in NS 250 ML IV SCH (03:27)
[2019-02-01 06:05] LABS: ALLEN TEST YES; BE 8.9 mmoll (-3.0-3.0); BLOOD TYPE ARTERIAL; HCO3-(ACT) 31.8 mmoll (20.0-26.0); METHB 0.6 % (0.0-1.5); O2(CT) 13.5 mL/dL (15.0-23.0); PCO2(98.6) 49 mmHg (35-45); PO2(98.6) 61 mmHg (60-100); SAMPLE BLOOD; SAO2 94.7 % (95.0-100.0); THB 10.3 g/dL (11.5-17.4); pH(98.6) 7.45 (7.35-7.45)
[2019-02-01 06:06] LABS: MODALITY CANNULA
[2019-02-01] MEDS: NORCO-5 PO PRN ×2 (06:07→10:32)
[2019-02-01 07:14] LABS: ESTIMATED GFR > 60
[2019-02-01 07:16] LABS: AGAP 6; BUN 15 mg/dL (8-22); CALCIUM 8.7 mg/dL (8.8-10.2); CHLORIDE 89 mmol/L (98-107); COSMO 248; CREATININE 0.2 mg/dL (0.5-0.9); GLUCOSE 96 mg/dL (70-104); POTASSIUM 4.6 mmol/L (3.5-5.1); SODIUM 123 mmol/L (136-145); TCO2 28 mmol/L (25-35)
[2019-02-01] MEDS: ADVAIR 250/50 DISKUS INH SCH (07:44)
[2019-02-01] MEDS: SPIRIVA INH SCH (07:45)
[2019-02-01] MEDS: MAXIPIME 1 GM in NS 50 ML IV SCH (09:31)
[2019-02-01] MEDS: ZANTAC PO SCH (10:32)
[2019-02-01] MEDS: EFFEXOR XR PO SCH (10:32)
[2019-02-01] MEDS: FLONASE NAS SCH (10:33)
[2019-02-01] MEDS: NICODERM PATCH TD SCH (10:33)
[2019-02-01 13:16] VITALS: BP 122/70
--- NOTE | 2019-02-01 14:06 | DISCHARGE SUMMARY ---
ADMISSION DATE: 01/23/2019 DISCHARGE DATE: 01/31/2019 HISTORY: She is followed by Dr. Orion Freire. She presented with shortness of breath. A 68- year-old female with history of COPD, continued tobacco use, home O2 on 4 L per nasal cannula, presented with complaints of shortness of breath for the last couple of days. She came to the emergency room, and developed about 90% degree of orthopnea with some chest tightness. She was found in COPD exacerbation. Denies any syncope, dizziness, palpitations, fever, chills, or productive cough. PAST MEDICAL HISTORY: 1. COPD, ongoing tobacco use. 2. Severe emphysematous changes pulmonary arteriogram in July of 2018. 3. Gastroesophageal reflux disease. 4. Remote history of alcohol abuse. 5. Status post recent inguinal hernia repair with continued pain. PAST SURGICAL HISTORY: 1. Hernia repair and inguinal hernia repair. 2. Tonsillectomy. 3. Bilateral tubal ligation. ADMISSION DIAGNOSES: 1. Chronic obstructive pulmonary disease with acute on chronic exacerbation. She has chronic hypoxemia, and chronic CO2 retention, was given some CO2 and she improved fairly quickly. 2. Gastroesophageal reflux. 3. Hyponatremia which resolved with some fluids. 4. Family concerned she is not eating and losing weight. She did start breathing better, woke up, and was alert and oriented. I felt like her encephalopathy and her confusion was largely related to probably benzodiazepine withdrawal. There is a question on what medicines she is taking at home, but she seemed to do well once I started back on some IV Ativan with pretty quick improvement. DISCHARGE ORDERS: She has I think a DuoNeb at home, can use that as needed. She takes Xanax 0.25 mg p.o. b.i.d. p.r.n. She has Zantac 150 mg b.i.d. and she takes her Proventil inhaler on calcium carbonate. She is on Flonase nasal spray, and she has Advair 250 - 50 1 b.i.d. She has [place] at home which I am not going to write a prescription for. She can pursue that with her primary care physician if he wants her on pain medicines. She is on ipratropium albuterol inhaler q.6 hours p.r.n. and prednisone 20 mg b.i.d. Spiriva 1 puff daily and Effexor 150 mg daily. She is to follow up with Dr. Freire. She does not want hospice. She does not want to go to rehab. She wants to go home and pursue home health. She is pretty adamant about that. cc: Primitivo Zavala MD
[2019-02-01] MEDS ORDERED: VANCOMYCIN 1.5 GM in NS 250 ML IV SCH (17:00)
== END 2019-02-01 16:48 | disposition home health service (06) | DRG 190 ==
LOC: SUPCPDRO → ED 09:43 → EDIPHOLD 14:24 → SUATTDRO 14:24 → 4N 22:55
PROVIDERS: ATTEND Emergency Medicine
CPT/HCPCS: 71010; 71020; 71045; 71046; 80048; 80053; 80069; 80202; 82550; 82805; 83735; 83880; 83935; 84300; 84443; 84484; 85025; 85610; 85730; 93005; 94640; 94760; 94761; 94762; 94799; 96374; 96375; 96376; 99285; A9270; J0692; J1630; J2060; J2270; J2920; J2930; J3370; J7030; J7050

== ENCOUNTER 2019-02-07 11:11 | Inpatient (IN) ==
[2019-02-07 12:51] LABS: BASO# 0.01 X1000 (0.0-0.2); BASO% 0.1 % (0.0-0.8); EOS# 0.02 X1000 (0.0-0.7); EOS% 0.2 % (0.0-10.0); HEMATOCRIT 33.4 % (37.0-47.0); HEMOGLOBIN 11.9 g/dL (12.0-16.0); IMM GRAN# 0.02 X1000 (0.0-0.04); IMM GRAN% 0.2 % (0.0-0.5); LYMPH# 0.38 X1000 (1.2-3.4); LYMPH% 4.6 % (20.5-51.1); MCHC 35.6 g/dL (33-37); MONO# 1.28 X1000 (0.11-0.59); MONO% 15.4 % (1.7-9.3); MPV 9.6 FL (7.4-10.4); NEUT# 6.62 X1000 (1.4-6.5); NEUT% 79.5 % (42.2-75.2); PLT 240 X1000 (130-400); RBC 3.84 XMIL (4.2-5.4); RDW 13.8 % (11.5-14.5); WBC 8.33 X1000 (4.8-10.8)
--- NOTE | 2019-02-07 13:15 | Diag Imaging Result Doc PS360 ---
EXAM: CT HEAD W/O CONTRAST HISTORY: AMS TECHNIQUE: CT head without contrast COMPARISON: None. FINDINGS: No parenchymal hemorrhage. No epidural or subdural hematoma. No subarachnoid hemorrhage. No mass identified on this noncontrasted exam. No hydrocephalus. No sinus opacification. IMPRESSION: No hemorrhage. Negative brain CT without contrast. This exam was performed using automated exposure control, adjustment of mA or kV according to patient size, and/or use of iterative reconstruction technique. Electronically signed by Grupo Nelson 02/07/2019 1:12 PM
[2019-02-07 13:24] LABS: FREE T4 1.65 ng/dL (0.93-1.70)
--- NOTE | 2019-02-07 13:40 | Diag Imaging Result Doc PS360 ---
EXAM: CHEST-PORTABLE HISTORY: AMS TECHNIQUE: Portable chest single view COMPARISON: 01/31/2019 FINDINGS: The lungs are hyperexpanded the heart is not enlarged. The vessels are not distended. There are no infiltrates. No effusion identified. There calcified right hilar nodes with a granuloma in the mid right lung. IMPRESSION: Emphysema Electronically signed by Grupo Nelson 02/07/2019 1:38 PM
[2019-02-07 13:49] LABS: ESTIMATED GFR > 60
[2019-02-07 13:49] LABS: URINE SOURCE CATH
[2019-02-07 13:53] LABS: BILIRUBIN URINE NEGATIVE (NEGATIVE); BLOOD URINE NEGATIVE (NEGATIVE); COLOR YELLOW; GLUCOSE URINE 300 mg/dL (NEGATIVE); KETONE URINE 10 mg/dL (NEGATIVE); LEUKOCYTES URINE NEGATIVE (NEGATIVE); NITRITE URINE NEGATIVE (NEGATIVE); PROTEIN URINE TRACE mg/dL (NEGATIVE); SP GRAVITY URINE 1.017; TURBIDITY URINE CLEAR (CLEAR); UR EPITHELIAL CELLS <10 /HPF (<10); URINE BACTERIA NEGATIVE /HPF; URINE RBC <10 /HPF (<10); URINE WBC <10 /HPF (<10); UROBILINOGEN URINE NORMAL (NORMAL)
[2019-02-07 13:54] LABS: AGAP 14; ALB/GLOB RATIO 1.3; ALBUMIN 3.4 g/dL (3.5-5.0); ALKALINE PHOSPHATASE 100 U/L (32-104); BUN 29 mg/dL (8-22); CALCIUM 8.5 mg/dL (8.8-10.2); CHLORIDE 86 mmol/L (98-107); COSMO 261; CREATININE 0.5 mg/dL (0.5-0.9); GLUCOSE 299 mg/dL (70-104); GOT 35 U/L (10-30); GPT 68 U/L (10-36); MAGNESIUM 1.7 mg/dL (1.5-2.7); POTASSIUM 4.4 mmol/L (3.5-5.1); SODIUM 121 mmol/L (136-145); TCO2 21 mmol/L (25-35); TOTAL BILIRUBIN 0.39 mg/dL (0.20-1.00)
[2019-02-07 14:00] LABS: TSH 1.88 uIUmL (0.27-4.20)
[2019-02-07] MEDS ORDERED: NS 1,000 ML IV ONE ×2 (14:05→17:26)
[2019-02-07 14:13] LABS: UR AMPHETAMINES QUAL NONE DETECTED (NONE DETECT); UR BARBITUATES QUAL NONE DETECTED (NONE DETECT); UR BENZODIAZEPIN QUAL NONE DETECTED (NONE DETECT); UR CANNABINOIDS QUAL NONE DETECTED (NONE DETECT); UR COCAINE QUAL NONE DETECTED (NONE DETECT); UR METHADONE QUAL NONE DETECTED (NONE DETECT); UR OPIATES QUAL NONE DETECTED (NONE DETECT); UR OXYCODONE QUAL NONE DETECTED (NONE DETECT); UR PCP QUAL NONE DETECTED (NONE DETECT)
[2019-02-07 14:35] LABS: BE 3.1 mmoll (-2.0-2.0); BLOOD TYPE VENOUS; HCO3-(ACT) 26.4 mmoll (22-27); PCO2(98.6) 49 mmHg (40-60); PO2(98.6) 31 mmHg (30-55); SAMPLE BLOOD; SAO2 59.9 % (40.0-85.0); pH(98.6) 7.38 (7.32-7.43)
--- NOTE | 2019-02-07 14:44 | PROVIDER DOCUMENTATION ---
This chart was entered by Erica Mccray Scribe, acting as scribe for Escobar Springer MD. HPI-Neurological Disorder - General Chief Complaint: Altered Mental Status Stated Complaint: AMS Time Seen by Provider: 02/07/19 12:04 Source: EMS Allergies/Adverse Reactions: Patient Allergies Allergy/AdvReac Type Severity Reaction Status Date / Time diclofenac Allergy HEADACHE Verified 01/16/19 20:53 doxycycline Allergy SWELLING Verified 01/16/19 20:53 gluten Allergy Unknown Verified 01/23/19 17:13 Tetanus Vaccines and Toxoid Allergy ANAPHYLAXIS Verified 01/16/19 20:53 [Tetanus Vaccines & Toxoid] propoxyphene HCl * AdvReac Unknown Verified 01/23/19 10:11 [From Darvon] Home Medications: Home Medication List Medication Instructions Recorded Confirmed Last Taken Type Tiotropium [place] Inhaler 1 puff INH RTDAILY 11/29/14 01/23/19 12/13/18 History [Spiriva] Albuterol Sulfate [Proventil Hfa] 6.7 gm IH 2-4XDAY PRN PRN 11/28/18 01/23/19 12/13/18 History Alprazolam [Xanax] 0.25 mg PO BID PRN PRN 11/28/18 01/23/19 12/13/18 History Fluticasone/Salmet 250/50 INH 1 puff INH RTBID 11/28/18 01/23/19 12/13/18 History [Advair 250/50 Diskus] Ibuprofen [Advil Migraine] 400 - 600 mg PO Q4-6H PRN PRN 11/28/18 01/23/19 12/13/18 History Ipratropium/Albuterol Sulfate 3 ml IH Q6HR PRN 11/28/18 01/23/19 12/13/18 Hist ory [Iprat-Albut 0.5-3(2.5) mg/3 ml] Ranitidine HCl [Zantac] 150 mg PO BID 11/28/18 01/23/19 12/13/18 History Venlafaxine HCl [Effexor Xr] 150 mg PO DAILY 11/28/18 01/23/19 12/13/18 History Prednisone 20 mg PO BID #10 tab 01/16/19 01/23/19 Unknown Rx Calcium Carbonate/Vitamin D3 1 ea PO DAILY 01/24/19 01/24/19 01/23/19 08:00 History [Calcium 600 + Vit D Tablet] Fluticasone 50 Mcg Nasal [place] 1 spray INTRANASAL DAILY 01/24/19 01/24/19 01/23/19 08:00 History [Flonase] Hydrocortisone Supp [Anusol-Hc 25 mg DC BID 01/24/19 01/24/19 12/24/18 21:00 History Supp] Mv-Mn/Folic Acid/Calcium/Vit K 1 ea PO DAILY 01/24/19 01/24/19 01/23/19 08:00 History [Women's 50 Plus Daily Formula] Levofloxacin [Levaquin] 500 mg PO DAILY #7 tab 01/27/19 Unknown Rx Nicotine Patch [Nicoderm Patch] 21 mg TD DAILY 14 Days #14 02/01/19 Unknown Rx patch.[id number] - History of Present Illness-Neuro Nature of Presenting Problem: Patient is a 68 year old female who presents to the ED via EMS with altered mental status. EMS reports patient's son started patient was found behind the sofa this morning and was combative. EMS states patient has a history of dementia. EMS gave the patient Ketamine prior to arrival. Severity: reports: mild Onset/Duration: reports: unsure Timing: reports: still present Context: reports: other (AMS) Character of Altered Mental Status: reports: combative Associated Symptoms: reports: denies symptoms Similar Symptoms Previously?: No Recently seen or treated by another doctor?: No Review of Systems - Adult - REVIEW OF SYSTEMS - ADULT ROS:: unobtainable per condition Constitutional: reports: no symptoms reported Eyes: reports: no symptoms reported Ears, Nose, Mouth & Throat: reports: no symptoms reported Cardiovascular: reports: no symptoms reported Respiratory: reports: no symptoms reported Gastrointestinal: reports: no symptoms reported Genitourinary: reports: no symptoms reported Musculoskeletal: reports: no symptoms reported Integumentary: reports: no symptoms reported Neurological: reports: no symptoms reported Psychiatric: reports: no symptoms reported Endocrine: reports: no symptoms reported Hematologic/Lymphatic: reports: no symptoms reported Allergic/Immunologic: reports: no symptoms reported All Other Systems: Reviewed and Negative Past History - Adult - PAST MEDICAL HISTORY-ADULT Review of Records: reports: Nursing Assessment Review, Medications Reviewed, Social history reviewed & non-contributory. Major Childhood Illnesses: reports: denies history Cardiovascular: reports: denies history Respiratory: reports: COPD Gastrointestinal: reports: GERD Obstetrical/Gynecological: reports: denies history Genitourinary: reports: denies history Musculoskeletal: reports: denies history Neurological: reports: dementia, headaches/migraines Psychiatric: reports: depression Endocrine/Immune: reports: Diabetes Other Conditions: reports: denies history - PRIOR SURGERIES/PROCEDURES Surgical/Procedure History: reports: BTL, tonsillectomy, hernia repair - PRIOR HOSPITALIZATIONS Prior Hospitalizations: reports: for other non-related - IMMUNIZATION STATUS Childhood Immunizations: See Nurse Assessment Flu Vaccine: See Nurse Assessment - FAMILY HISTORY Family History: reviewed, not pertinent - SOCIAL HISTORY Smoking: denies Substance Use: denies Physical Exam- Neurological - Physical Exam-Neuro Initial Vital Signs Reviewed: Yes General Appearance: no apparent distress, thin, lethargic. negative: combative HENMT: normocephalic/atraumatic, other (dry mucous membranes). negative: angioedema Head Injury: no evidence of injury. negative: contusions, ecchymosis Respiratory: chest non-tender, lungs clear, normal breath sounds. negative: crackles, rhonchi Cardiovascular: normal peripheral pulses, tachycardia. negative: systolic murmur Abdominal Exam: normal bowel sounds, non tender, soft. negative: guarding, rebound Extremity: non-tender, swelling (bilateral feet). negative: erythema rn wellness Exam: other (unable to assess per patient's condition) Coordination/Gait: other (unable to assess per patient's condition) Motor/Sensory: other (unable to assess per patient's condition) Neurologic: other (unable to assess per patient's condition) Integumentary: normal color, normal turgor, warm/dry. negative: cyanosis, ecchymosis, erythema Psych/Mental Status: other (lethargic). negative: anxious, paranoid Progress - PLAN OF CARE/RESULTS Progress/Plan/Lab Results: Vital Signs - 8 hr 02/07/19 11:36 02/07/19 11:38 02/07/19 11:50 Temperature Pulse Rate 111 H Respiratory Rate 23 Blood Pressure 151/88 O2 Sat by Pulse Oximetry 94 L 94 L 95 02/07/19 11:51 02/07/19 12:40 02/07/19 13:10 Temperature 98.2 F Pulse Rate 110 H 114 H 112 H Respiratory Rate 24 28 H 25 H Blood Pressure 151/88 O2 Sat by Pulse Oximetry 95 94 L 94 L 02/07/19 13:39 02/07/19 14:01 02/07/19 14:07 Temperature Pulse Rate 113 H 110 H 110 H Respiratory Rate 25 H 19 28 H Blood Pressure 129/73 117/82 139/81 O2 Sat by Pulse Oximetry 97 95 95 02/07/19 14:31 Temperature Pulse Rate 108 H Respiratory Rate 30 H Blood Pressure 133/79 O2 Sat by Pulse Oximetry 96 Laboratory Results - last 24 hr 02/07/19 02/07/19 02/07/19 12:19 12:19 12:19 WBC 8.33 RBC 3.84 L Hgb 11.9 L Hct 33.4 L MCV 87.0 MCH 31.0 MCHC 35.6 RDW Std Deviation 13.8 Plt Count 240 MPV 9.6 Immature Gran % (Auto) 0.2 Neut % (Auto) 79.5 H Lymph % (Auto) 4.6 L [place] % (Auto) 15.4 H Eos % (Auto) 0.2 Baso % (Auto) 0.1 Immature Gran # (Auto) 0.02 Neut # (Auto) 6.62 H Lymph # (Auto) 0.38 L [place] # (Auto) 1.28 H Eos # (Auto) 0.02 Baso # (Auto) 0.01 Specimen Type VBG pH VBG pCO2 VBG pO2 VBG HCO3 VBG O2 Saturation VBG Base Excess VBG Lactate Sodium 121 L Potassium 4.4 Chloride 86 L Carbon Dioxide 21 L Anion Gap 14 BUN 29 H Creatinine 0.5 Estimated GFR/1.73 m2 > 60 BUN/Creatinine Ratio 58 Glucose 299 H Calculated Osmolality 261 Calcium 8.5 L Magnesium 1.7 Total Bilirubin 0.39 AST 35 H ALT 68 H Alkaline Phosphatase 100 Troponin T Total Protein 6.0 L Albumin 3.4 L Globulin 2.6 Albumin/Globulin Ratio 1.3 TSH 1.88 Free T4 1.65 Urine Source Urine Color Urine Turbidity Urine pH Ur Specific [place] Urine Protein Ur Glucose (Stick) Ur Ketones (Stick) Urine Blood Urine Nitrite Urine Bilirubin Urobilinogen Dipstick Urine Leukocytes Urine WBC (Auto) Urine RBC (Auto) U Epithel Cells (Auto) Urine Bacteria (Auto) Urine Opiates Screen Ur Oxycodone Screen Ur Methadone, Qual Ur Barbiturates Screen Ur Phencyclidine Scrn Ur Amphetamines Screen U Benzodiazepines Scrn Urine Cocaine Screen U Cannabinoids Screen 02/07/19 02/07/19 02/07/19 12:19 13:41 13:41 WBC RBC Hgb Hct MCV MCH MCHC RDW Std Deviation Plt Count MPV Immature Gran % (Auto) Neut % (Auto) Lymph % (Auto) [place] % (Auto) Eos % (Auto) Baso % (Auto) Immature Gran # (Auto) Neut # (Auto) Lymph # (Auto) [place] # (Auto) Eos # (Auto) Baso # (Auto) Specimen Type VBG pH VBG pCO2 VBG pO2 VBG HCO3 VBG O2 Saturation VBG Base Excess VBG Lactate Sodium Potassium Chloride Carbon Dioxide Anion Gap BUN Creatinine Estimated GFR/1.73 m2 BUN/Creatinine Ratio Glucose Calculated Osmolality Calcium Magnesium Total Bilirubin AST ALT Alkaline Phosphatase Troponin T 0.018 Total Protein Albumin Globulin Albumin/Globulin Ratio TSH Free T4 Urine Source CATH Urine Color YELLOW Urine Turbidity CLEAR Urine pH 6.0 Ur Specific [place] 1.017 Urine Protein TRACE A Ur Glucose (Stick) 300 A Ur Ketones (Stick) 10 A Urine Blood NEGATIVE Urine Nitrite NEGATIVE Urine Bilirubin NEGATIVE Urobilinogen Dipstick NORMAL Urine Leukocytes NEGATIVE Urine WBC (Auto) <10 Urine RBC (Auto) <10 U Epithel Cells (Auto) <10 Urine Bacteria (Auto) NEGATIVE Urine Opiates Screen NONE DETECTED Ur Oxycodone Screen NONE DETECTED Ur Methadone, Qual NONE DETECTED Ur Barbiturates Screen NONE DETECTED Ur Phencyclidine Scrn NONE DETECTED Ur Amphetamines Screen NONE DETECTED U Benzodiazepines Scrn NONE DETECTED Urine Cocaine Screen NONE DETECTED U Cannabinoids Screen NONE DETECTED 02/07/19 14:30 WBC RBC Hgb Hct MCV MCH MCHC RDW Std Deviation Plt Count MPV Immature Gran % (Auto) Neut % (Auto) Lymph % (Auto) [place] % (Auto) Eos % (Auto) Baso % (Auto) Immature Gran # (Auto) Neut # (Auto) Lymph # (Auto) [place] # (Auto) Eos # (Auto) Baso # (Auto) Specimen Type VENOUS VBG pH 7.38 VBG pCO2 49 VBG pO2 31 VBG HCO3 26.4 VBG O2 Saturation 59.9 VBG Base Excess 3.1 H VBG Lactate 3.90 H Sodium Potassium Chloride Carbon Dioxide Anion Gap BUN Creatinine Estimated GFR/1.73 m2 BUN/Creatinine Ratio Glucose Calculated Osmolality Calcium Magnesium Total Bilirubin AST ALT Alkaline Phosphatase Troponin T Total Protein Albumin Globulin Albumin/Globulin Ratio TSH Free T4 Urine Source Urine Color Urine Turbidity Urine pH Ur Specific [place] Urine Protein Ur Glucose (Stick) Ur Ketones (Stick) Urine Blood Urine Nitrite Urine Bilirubin Urobilinogen Dipstick Urine Leukocytes Urine WBC (Auto) Urine RBC (Auto) U Epithel Cells (Auto) Urine Bacteria (Auto) Urine Opiates Screen Ur Oxycodone Screen Ur Methadone, Qual Ur Barbiturates Screen Ur Phencyclidine Scrn Ur Amphetamines Screen U Benzodiazepines Scrn Urine Cocaine Screen U Cannabinoids Screen Orders Category Date Time Status Finger Stick Blood Sugar (ED) DIRECTED Care 02/07/19 12:36 Active Sorto Cath Insertion ORDERED Care 02/07/19 12:38 Active Saline Loc NOW Care 02/07/19 12:36 Active CHEST-PORTABLE [RAD] Stat Exams 02/07/19 12:[address] HEAD W/O CONTRAST [CT] Stat Exams 02/07/19 12:34 Completed BLOOD CULTURE [BLDCUL] Stat Lab 02/07/19 14:37 Received CBC WITH ELECTRONIC DIFF [HEME] Stat Lab 02/07/19 12:19 Completed COMPREHENSIVE METABOLIC PANEL [CHEM] Stat Lab 02/07/19 12:19 Completed FREE T4 Stat Lab 02/07/19 12:19 Completed LACTATE, PLASMA [CHEM] Stat Lab 02/07/19 14:27 Received MAGNESIUM [CHEM] Stat Lab 02/07/19 12:19 Completed TROPONIN T Stat Lab 02/07/19 12:19 Completed TSH Stat Lab 02/07/19 12:19 Completed URINALYSIS W/POSS RFLX CULT [URINALYSIS] Stat Lab 02/07/19 13:41 Completed URINE DRUG SCREEN Stat Lab 02/07/19 13:41 Completed VENOUS BLOOD GAS [RESP] Routine Lab 02/07/19 14:30 Completed 0.9% Sodium Chloride Inj [Ns] 1,000 ml Med 02/07/19 14:05 Active IV 999 mls/hr EKG [EKG] Stat Ther 02/07/19 12:36 Ordered 1401 - Patient son arrived in ED and spoke with Dr. Springer. Son states he and his mother have not ever had a close relationship and she has lived in isolation most of her life. Daughter in law states patient is unable to care for herself and it has been getting worse. Result Diagrams: 04/18/19 12:19 02/07/19 12:19 - EKG 1 Time of EKG reading by physician:: 12:01 EKG Read and Signed by:: Escobar Springer EKG Interpretation (*Must complete 3 of following elements*): Abnormal (ST & T wave abnormality, consider lateral ischemia) Rate: 111 Rhythm: sinus tachycardia QRS: LVH (minimal voltage) DC Interval: normal Comments: septal infarct, age undetermined; - XRAY 1 XRAY Study: Chest Impression: See EMR Report ( EXAM: CHEST-PORTABLE HISTORY: AMS TECHNIQUE: Portable chest single view COMPARISON: 01/31/2019 FINDINGS: The lungs are hyperexpanded the heart is not enlarged. The vessels are not distended. There are no infiltrates. No effusion identified. There calcified right hilar nodes with a granuloma in the mid right lung. IMPRESSION: Emphysema Electronically signed by Grupo Nelson 02/07/2019 1:38 PM 02/07/19 1338 Interpreting Physician: Grupo Nelson MD Dictated Date/Time: 02/07/19 1336 cc: Escobar Springer MD; Orion Freire MD) - CT/MRI 1 CT Study: Head Impression: See EMR Report (EXAM: CT HEAD W/O CONTRAST HISTORY: AMS TECHNIQUE: CT head without contrast COMPARISON: None. FINDINGS: No parenchymal hemorrhage. No epidural or subdural hematoma. No subarachnoid hemorrhage. No mass identified on this noncontrasted exam. No hydrocephalus. No sinus opacification. IMPRESSION: No hemorrhage. Negative brain CT without contrast. This exam was performed using automated exposure control, adjustment of mA or kV according to patient size, and/or use of iterative reconstruction technique. Electronically signed by Grupo Nelson 02/07/2019 1:12 PM 02/07/19 1312 Interpreting Physician: Grupo Nelson MD Dictated Date/Time: 02/07/19 1311 cc: Escobar Springer MD; Orion Freire MD) - CONSULTS/PCP/HOSPITALIST Notification #1 *Consult/PCP/Hospitalist*: CITLALY Persaud for Hospitalist Time Discussed: 14:32 (Dr. Escamilla accepted admit) Reason/Comments: Dr. Springer consulted with Hung about patient Consult Disposition: Will see in ED, Admit Departure - Departure Date of Disposition Decision: 02/07/19 Time of Disposition Decision: 14:38 DIAGNOSIS: Altered mental status, Bizarre behavior, Hyponatremia, Tachycardia Disposition: ADMITTED INPATIENT 09 Certified Medical Emergency: Emergent Condition: Fair Referrals and Follow-Ups: Orion Freire MD [Primary Care Provider] - - Critical Care Note This patient required my direct & personal management of CC.: Yes Total Time (mins): 33 Critical Care Statement: This patient required my direct personal management to treat or rule out processes, the absence of which, could potentiallly result in sudden, clinically significant life or limb threatening deterioration. Attestation - Physician/ DAGOBERTO Attestation The physician spent face to face time with patient:: Yes Advanced Practice Provider documentation review:: Supervising physician onsite and consulted in the evaluation and care of this patient. The physician did have a face to face encounter with the patient. This chart was documented by the indicated scribe, (Erica Mccray Scribe) and accurately reflects the services I performed and decisions made by me, Escobar Springer MD, as attested by the provider's signature.
--- NOTE | 2019-02-07 15:41 | EKG Report ---
Test Performed on : 02/07/2019 12:01:35 PM Test Reason : AMS Blood Pressure : / mmHG Vent. Rate : 111 BPM Atrial Rate : 111 BPM P-R Int : 128 ms QRS Dur : 076 ms QT Int : 304 ms P-R-T Axes : 058 009 092 degrees QTc Int : 413 ms Sinus tachycardia. Minimal voltage criteria for LVH, may be normal variant Septal infarct , age undetermined ST & T wave abnormality, consider lateral ischemia Abnormal ECG When compared with ECG of 16-JAN-2019 20:09, (Unconfirmed) Septal infarct is now present Non-specific change in ST segment in Lateral leads T wave inversion now evident in Lateral leads Unconfirmed Result
[2019-02-07 17:10] LABS: UR CREAT RANDOM 53.9 mg/dL (11-20); UR SODIUM < 10 mmoll
[2019-02-07] MEDS ORDERED: HALDOL IV PRN (17:26)
[2019-02-07] MEDS ORDERED: XOPENEX NEB INH PRN (17:26)
[2019-02-07] MEDS: NICODERM PATCH TD SCH (17:49)
[2019-02-07] MEDS: LOVENOX SUBQ SCH (17:49)
--- NOTE | 2019-02-07 18:14 | HISTORY AND PHYSICAL ---
CHIEF COMPLAINT: Agitation and altered mental status. HISTORY OF PRESENT ILLNESS: Ms. Lambert is a 68-year-old female who was discharged from our service only 6 days ago for COPD exacerbation, hyponatremia, and encephalopathy which was ultimately felt to be secondary to benzodiazepine withdrawal. There was a question of psychiatric illness during her last admission, as she did have episodes of what appeared to be psychosis. The details of her return are a bit unclear at this time. There is no family at the bedside, and the patient is either unwilling or too altered to answer questions. The ER report states that her family went and checked on her today, and there were feces and urine about the house, and she was hiding behind the couch in a somewhat fearful state. She was brought here. A head CT was done which was negative. Chemistry did reveal again hyponatremia, blood sugar of 299, and slight acidosis. Because of her altered mentation and agitation as well as hyponatremia, we are going to admit her for further treatment and evaluation. PAST MEDICAL HISTORY: 1. Chronic hyponatremia. 2. COPD. 3. Nicotine dependence. 4. Gastroesophageal reflux disease. 5. Remote history of alcohol dependence. 6. Chronic protein calorie malnutrition. PAST SURGICAL HISTORY: Hernia repair, tonsillectomy, tubal ligation bilateral. SOCIAL HISTORY: She is . Smokes 1-2 packs a day. Remote history of alcohol dependence. Apparently she has not drunk anything in around 30 years. FAMILY HISTORY: Not known. ALLERGIES: Diclofenac, doxycycline, tetanus and Darvon. HOME MEDICATIONS: These have not been compiled by the staff. It is unclear as to exactly what she is taking at home. Will try to get that list from her family. REVIEW OF SYSTEMS: Unable to obtain. PHYSICAL EXAMINATION: VITAL SIGNS: Blood pressure 133/79, heart rate 108, respiratory rate 30, O2 saturation 96% on nasal cannula. Temperature is 98.2. GENERAL: This is a frail and cachectic-appearing 68-year-old female lying in the hospital bed in restraints, but in no acute distress. NEUROLOGIC: She opens her eyes to verbal stimulus, and she actually will answer questions appropriately, it appears, when she wants to, but when asked what were the circumstances of her coming to the ER, she refused to answer those questions. There were times when she would appear agitated as well. She did follow commands without overt focal deficits. HEENT: Head is atraumatic and normocephalic. Pupils are equal, round, and reactive to light. Her oral mucosa is dry. NECK: Trachea is midline. Neck is supple. CHEST: Diminished at the bases but clear to auscultation bilaterally. CV: Tachycardic but regular. S1 and S2 is noted. No appreciable murmurs. GI: Soft and nondistended. Bowel sounds are active. EXTREMITIES: No edema. Pulses are 1+ bilaterally. DIAGNOSTIC DATA: Head CT shows chronic microvascular changes but nothing acute. Chest x-ray shows emphysematous changes but no acute findings. EKG shows sinus tachycardia without acute ST or T abnormalities. LABORATORY DATA: WBCs 8.33, hemoglobin 11.9, hematocrit 33.4, platelet count 240. Venous blood gas: Lactate of 3.9, pH of 7.38. Sodium is 121, potassium 4.4, chloride 86. CO2 is 21, anion gap 14, BUN 29, creatinine 0.5, glucose 299. Calcium is 8.5, magnesium 1.7. AST is 35, ALT 68, alkaline phosphatase 100. Troponin 0.018. Protein 6, albumin 3.4. Lactic acid 3.3. TSH 1.88, free T4 1.65. UA is negative for infection. Urine glucose is 300 and ketones 10. Random sodium in the urine is less than 10. Toxicology screen is negative. ASSESSMENT AND PLAN: 1. Toxic metabolic encephalopathy versus underlying psychiatric illness: It appears that the patient is oriented, and she understands what is going on; however, at times she is refusing to answer questions, more as if agitated or unwilling to answer. Head CT does not show anything acute. She does have hyponatremia, but this is a chronic issue and unlikely to be causing this type of behavior, however not completely out of the question. Her urine sodium is less than 10. We are still waiting on urine osmolality for full evaluation of hyponatremia. 2. Hyperglycemia. Blood sugar is 299. There is no hemoglobin A1c on file. We will check one and evaluate for diabetes, and if necessary, place her on sliding scale and pattern sugars. 3. Lactic acidosis, likely from volume depletion. No nidus of infection at this time. Will hydrate and recheck. 4. Chronic obstructive pulmonary disease: Lungs are clear. There is no wheezing and no evidence of respiratory distress. Continue breathing treatments and aggressive pulmonary toilet. 5. Possible underlying psychiatric illness. Would consider psychiatric evaluation by [facility] once any medical possibilities have been ruled out. 6. Deep venous thrombosis prophylaxis with Lovenox, further recommendations to follow. Dictated by CITLALY Love for Jose Raul Beard MD Patient seen and examined by me face to face, all the laboratory, vitals and images were reviewed, patient was recently discharged, it looks like she was confused during her last hospitalization and also with a possible psychiatry disorder but she was discharged, at that moment she was alert, apparently oriented and stable medical condition, she has been readmitted due to mental status changes again, she looks dehydrated, confused, no signs of respiratory, abdominal or cardiac problems, she will be admitted to the medical floor, she will receive IV fluids and hopefully her hyponatremia will be better but this is chronic though, I agree with the rest of the BLOOD DONOR RECRUITER SUPERVISOR's assessment and plan, Jose Raul Chi MD. cc: CITLALY Love MD MTDD
[2019-02-07] MEDS: XOPENEX NEB INH SCH (20:00)
[2019-02-08] MEDS: XOPENEX NEB INH SCH ×7 (03:40→23:50)
[2019-02-08 08:04] LABS: HEMATOCRIT 33.3 % (37.0-47.0); HEMOGLOBIN 11.6 g/dL (12.0-16.0); MCH 31.4 PG (27-31); MCHC 34.8 g/dL (33-37); MCV 90.2 FL (81-99); MPV 9.4 FL (7.4-10.4); RBC 3.69 XMIL (4.2-5.4); RDW 14.4 % (11.5-14.5); WBC 7.77 X1000 (4.8-10.8)
[2019-02-08 09:02] LABS: AGAP 7; BUN 13 mg/dL (8-22); CALCIUM 8.4 mg/dL (8.8-10.2); CHLORIDE 93 mmol/L (98-107); COSMO 257; CREATININE 0.2 mg/dL (0.5-0.9); ESTIMATED GFR > 60; GLUCOSE 92 mg/dL (70-104); MAGNESIUM 1.8 mg/dL (1.5-2.7); POTASSIUM 3.7 mmol/L (3.5-5.1); SODIUM 128 mmol/L (136-145); TCO2 28 mmol/L (25-35)
[2019-02-08] MEDS ORDERED: ATIVAN IV PRN (14:08)
[2019-02-08] MEDS: ATROVENT NEB INH SCH ×3 (15:53→23:50)
--- NOTE | 2019-02-08 16:28 | PROGRESS NOTE ---
DATE: 02/08/2019 SUBJECTIVE: This patient is lying comfortably in bed. She is not agitated but she is confused, she is able to talk. She does not seem to be in distress but she is not answering my questions, this patient has been placed back on her medications. I do not have at this moment any source of infection. Leukocyte count is normal as well as the temperature, she came in with hyponatremia at 121 but it looks like this is chronic. She has been having hyponatremia since August 2018. 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 I will add Ensure shakes with meals, she has been placed on a pureed diet, palliative care on board and it looks like the palliative care nurse has been talking to the son previously, they have decided before that probably this patient will need hospice but nobody can take care of her at home so we will try to get physical therapy on long-term placement for this lady. OBJECTIVE: Vital Signs: Temperature 97.9 degrees, pulse 98, respiratory rate 17, blood pressure 105/76, oxygen saturation 100% on 3 L of nasal cannula. General: This patient is a 68-year-old female, she looks cachectic, not in acute distress, not agitation. HEENT: Head normocephalic. No trauma. PERRLA. Neck: Supple. No JVD. No masses. Central trachea. Chest: Decreased breath sounds globally with prolonged expiratory phase and scattered crepitus bilaterally. Abdomen: Soft, nontender, nondistended. No hepatosplenomegaly. Extremities: No edema, no clubbing, no cyanosis. Decreased muscle mass. Neurological: When I evaluated this patient the patient was with the eyes closed. She was not responding to verbal stimuli and I even rubbed her chest, I open her eyes with my hands and then she started talking, she is not answering my questions but she is able to talk. LABORATORY: WBC 7.7, hemoglobin 11.6, hematocrit 33.3, platelets 209,000. Sodium 128, potassium 3.7, chloride 97, bicarbonate 28, BUN 13, creatinine 0.2, glucose 92, calcium 8.4, magnesium 1.8. ASSESSMENT AND PLAN: 1. Metabolic encephalopathy, I am not quite sure if this patient has a baseline dementia. It looks like she was admitted before for possible withdrawal symptoms, she has been confused before as well, it looks like she is cachectic and has an advanced chronic obstructive pulmonary disease, head CT did not show any acute abnormality. I have placed this patient back on her home medications. Hyponatremia is better. 2. Hyperglycemia, today is better, the glucose level is 92 today. 3. Lactic acidosis, resolved. Likely secondary to volume depletion. 4. Chronic obstructive pulmonary disease not in exacerbation. Continue breathing treatment. 5. Hyponatremia, urine osmolarity is high and serum osmolality is low. Probably this patient has a component of syndrome of inappropriate antidiuretic hormone secretion, is getting better without fluids. 6. Deep vein thrombosis prophylaxis with Lovenox. 7. Possible underlying psychiatric illness versus dementia, I will try to contact the family member, palliative care on board. cc: Jose Raul Beard MD
[2019-02-08] MEDS: NICODERM PATCH TD SCH (16:50)
[2019-02-08] MEDS: LOVENOX SUBQ SCH (16:50)
[2019-02-08] MEDS: EFFEXOR PO SCH (16:54)
[2019-02-08] MEDS: PREDNISONE PO SCH (16:54)
[2019-02-08] MEDS: D5 NS 1,000 ML IV SCH (17:58)
[2019-02-08] MEDS: ZANTAC PO SCH (21:21)
[2019-02-09] MEDS: ATROVENT NEB INH SCH ×6 (03:40→23:43)
[2019-02-09] MEDS: XOPENEX NEB INH SCH ×6 (03:40→23:43)
[2019-02-09 07:59] LABS: HEMATOCRIT 35.3 % (37.0-47.0); HEMOGLOBIN 12.5 g/dL (12.0-16.0); MCH 31.5 PG (27-31); MCHC 35.4 g/dL (33-37); MCV 88.9 FL (81-99); MPV 9.4 FL (7.4-10.4); RBC 3.97 XMIL (4.2-5.4); RDW 14.6 % (11.5-14.5); WBC 9.55 X1000 (4.8-10.8)
[2019-02-09 08:21] LABS: AGAP 10; BUN 15 mg/dL (8-22); CALCIUM 8.4 mg/dL (8.8-10.2); CHLORIDE 94 mmol/L (98-107); COSMO 263; CREATININE 0.2 mg/dL (0.5-0.9); ESTIMATED GFR > 60; GLUCOSE 116 mg/dL (70-104); MAGNESIUM 1.9 mg/dL (1.5-2.7); POTASSIUM 3.8 mmol/L (3.5-5.1); SODIUM 130 mmol/L (136-145); TCO2 26 mmol/L (25-35)
[2019-02-09] MEDS: EFFEXOR PO SCH (08:36)
[2019-02-09] MEDS: NICODERM PATCH TD SCH (08:37)
[2019-02-09] MEDS: ZANTAC PO SCH ×2 (08:37→21:33)
[2019-02-09] MEDS: PREDNISONE PO SCH (08:37)
[2019-02-09 08:53] LABS: CK INDEX 3.2 (0.0-2.5); CK-MB 10.02 ng/mL (0.0-5.0)
[2019-02-09] MEDS: D5 NS 1,000 ML IV SCH (13:48)
--- NOTE | 2019-02-09 15:42 | PROGRESS NOTE ---
DATE: 02/09/2019 SUBJECTIVE: I evaluated this patient in the morning; this patient looks different today. She is alert, awake. She is oriented x3. She is following commands. Her answers are slow and she does not remember what happened in the past few days. I encouraged the patient to eat, and she seems to be tolerating p.o. today. I will continue with the IV fluids, though. This patient has severe protein calorie malnutrition/cachexia. At some point, I will discuss the case with the family. I believe she lives by herself, but also I believe she needs to be with somebody else or at least go to a intermediate. Palliative Care on board. We will monitor. OBJECTIVE: Vital Signs: Temperature 97.8 degrees, pulse 108, respiratory rate 19, blood pressure 94/65, oxygen saturation 98 on 2 L of nasal cannula. HEENT: Head normocephalic. No trauma. PERRLA. Neck: Supple. No JVD. No masses. Central trachea. Chest: Decreased breath sounds globally with prolonged expiratory phase and scattered crepitus bilaterally. Abdomen: Soft, nontender, nondistended. No hepatosplenomegaly. Extremities: No edema, no clubbing, no cyanosis. Decreased muscle mass/cachexia. Neurological examination: The patient is alert, awake. She was following commands, answering my questions, but her answers were slow. LABORATORY: WBC 9.5, hemoglobin 12.5, hematocrit 35 and platelets 217. Sodium 130, potassium 3.8, chloride 94, bicarbonate 26. BUN 15, creatinine 0.2, glucose 116, calcium 8.4, magnesium 1.9. ASSESSMENT AND PLAN: 1. Metabolic encephalopathy. This is much better today. I am not quite sure if she has a baseline dementia. She is more oriented. She is not agitated. 2. Hyperglycemia, blood sugar better. We will monitor. 3. Lactic acidosis, resolved, probably secondary to volume depletion. 4. Chronic obstructive pulmonary disease, not in exacerbation. 5. Hyponatremia. Urine osmolarity is high and serum osmolarity is low. Probably this patient has a component of syndrome of inappropriate antidiuretic hormone, which is chronic. 6. Deep vein thrombosis prophylaxis with Lovenox. 7. Possible underlying psychiatric illness. At some point, like I mentioned before, I will contact the family. In the meantime, I will work with her. I will ask for physical therapy evaluation. 8. Generalized weakness. I will ask physical therapy to evaluate this patient. cc: Jose Raul Beard MD
[2019-02-09] MEDS ORDERED: MOTRIN PO ONE (16:27)
[2019-02-09] MEDS: LOVENOX SUBQ SCH (17:04)
[2019-02-10] MEDS: XOPENEX NEB INH SCH ×6 (03:26→22:55)
[2019-02-10] MEDS: ATROVENT NEB INH SCH ×6 (03:26→22:55)
[2019-02-10 08:02] LABS: AGAP 7; BUN 20 mg/dL (8-22); CALCIUM 8.4 mg/dL (8.8-10.2); CHLORIDE 97 mmol/L (98-107); COSMO 269; CREATININE 0.2 mg/dL (0.5-0.9); ESTIMATED GFR > 60; GLUCOSE 105 mg/dL (70-104); MAGNESIUM 1.8 mg/dL (1.5-2.7); POTASSIUM 4.3 mmol/L (3.5-5.1); SODIUM 133 mmol/L (136-145); TCO2 29 mmol/L (25-35)
[2019-02-10 08:06] LABS: HEMATOCRIT 30.6 % (37.0-47.0); HEMOGLOBIN 10.4 g/dL (12.0-16.0); MCH 31.3 PG (27-31); MCV 92.2 FL (81-99); MPV 9.4 FL (7.4-10.4); RBC 3.32 XMIL (4.2-5.4); RDW 14.6 % (11.5-14.5); WBC 9.88 X1000 (4.8-10.8)
[2019-02-10] MEDS: ZANTAC PO SCH ×2 (08:43→20:26)
[2019-02-10] MEDS: EFFEXOR PO SCH (08:43)
[2019-02-10] MEDS: PREDNISONE PO SCH (08:43)
[2019-02-10] MEDS: NICODERM PATCH TD SCH (08:44)
[2019-02-10] MEDS: D5 NS 1,000 ML IV SCH ×2 (10:04→12:07)
[2019-02-10] MEDS ORDERED: DULCOLAX PR ONE (10:11)
[2019-02-10] MEDS: MOTRIN PO PRN (10:14)
--- NOTE | 2019-02-10 11:16 | Diag Imaging Result Doc PS360 ---
ABDOMEN FLAT/UPRIGHT - 02/10/2019 INDICATION: Abdominal distention COMPARISON: 10/02/2018 FINDINGS: There is significant constipation in the right side of the abdomen and pelvis as well as the rectum. There is nonspecific gaseous distention of bowel loops that are probably colon. No visible free air. The lungs appear grossly clear. IMPRESSION: Constipation. Nonspecific gaseous distention of bowel loops that are probably colon. This may represent colonic ileus. Electronically signed by Gary Manzano 02/10/2019 11:14 AM
--- NOTE | 2019-02-10 11:49 | PROGRESS NOTE ---
DATE: 02/10/2019 SUBJECTIVE: The patient is alert. She is awake. She is oriented to person and place. She is able to recognize her son who is at the bedside, but she is extremely anxious. As per the son, he has been noticing some changes on his mom for a couple of months. She does live by herself. They have been noticing some text messages without reason and sometimes really late during the night, like 3 a.m. Based on what he is telling me, probably this patient has dementia. On the other hand, today, the patient has some abdominal distention at the level of the lower abdomen that was not present yesterday. She is not having nausea or vomiting, and actually she has been tolerating p.o. She has a Sorto catheter that is working fine. I will get an x-ray, and I will probably consult Surgery Department to evaluate this patient if she has an obstruction or if she is impacted. I will use an enema to start with. Her hyponatremia is better, but I believe it is chronic. She does have a pressure lesion on her sacral area but not open wound right now. OBJECTIVE: Vital signs: Temperature is 97.9, pulse 75, respiratory rate 21, blood pressure 122/74, oxygen saturation 98% on 4 L of nasal cannula. HEENT: Head is normocephalic and atraumatic. PERRLA. Neck: Supple. No JVD. No masses. Central trachea. Chest: Decreased breath sounds globally with prolonged expiratory phase and scattered crepitus bilaterally. Abdomen: Distended at the level of the lower abdomen and tender to palpation. No signs of peritoneal irritation. She has some bowel sounds. Extremities: No edema, no clubbing, no cyanosis. Decreased muscle mass/cachexia. Neurologic: The patient is alert, awake. She is following commands. She is anxious. She is answering all of my questions, but she is confused about what is going on, why or how she ended up in the hospital, and she is repeating every time why I feel this way and why I do not remember anything. DIAGNOSTIC DATA: WBC is 9.8, hemoglobin 10.4, hematocrit 30.6, platelets 185. Sodium is 133, potassium 4.3, chloride 97, bicarbonate 29, BUN is 20, creatinine 0.2, glucose 105, calcium 8.4, magnesium 1.8. ASSESSMENT AND PLAN: 1. Metabolic encephalopathy. She is oriented to place. She knows her name, and she recognizes family members, but she is extremely anxious and always asking what happened to her. She states that she does not understand why she is here in the hospital. Even though I have been trying to explain to her the situation, she repeats again the same question. 2. Hyperglycemia. Better. We will monitor. 3. Lactic acidosis, likely secondary to volume depletion, better. 4. Chronic obstructive pulmonary disease. Not in exacerbation. Probably advanced. 5. Hyponatremia. 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 This is chronic. Sodium level is 133 which is better. 6. DVT prophylaxis with Lovenox. 7. Abdominal distention, new onset. This patient is not having nausea or vomiting, and actually she is tolerating p.o. I will get an x-ray and depending on the results, I will ask Surgery Department to evaluate this patient if she has an obstruction. 8. Generalized weakness. I already consulted Physical Therapy. 9. Pressure ulcer, sacral area. For now, we will cover the lesion that is not an open wound. cc: Jose Raul Beard MD
[2019-02-10] MEDS: XANAX PO SCH ×2 (12:16→16:06)
[2019-02-11] MEDS: XOPENEX NEB INH SCH ×6 (03:15→23:00)
[2019-02-11] MEDS: ATROVENT NEB INH SCH ×6 (04:15→23:00)
[2019-02-11] MEDS: D5 NS 1,000 ML IV SCH (05:55)
[2019-02-11 07:36] LABS: HEMATOCRIT 30.5 % (37.0-47.0); HEMOGLOBIN 10.5 g/dL (12.0-16.0); MCH 30.9 PG (27-31); MCHC 34.4 g/dL (33-37); MCV 89.7 FL (81-99); MPV 9.6 FL (7.4-10.4); RBC 3.4 XMIL (4.2-5.4); RDW 14.7 % (11.5-14.5); WBC 6.67 X1000 (4.8-10.8)
[2019-02-11 07:43] LABS: MAGNESIUM 1.8 mg/dL (1.5-2.7); PHOSPHORUS 3.5 mg/dL (2.7-4.5)
[2019-02-11 07:48] LABS: AGAP 6; BUN 17 mg/dL (8-22); CALCIUM 8.4 mg/dL (8.8-10.2); CHLORIDE 97 mmol/L (98-107); COSMO 264; CREATININE 0.2 mg/dL (0.5-0.9); ESTIMATED GFR > 60; GLUCOSE 95 mg/dL (70-104); POTASSIUM 4.4 mmol/L (3.5-5.1); SODIUM 131 mmol/L (136-145); TCO2 28 mmol/L (25-35)
[2019-02-11] MEDS: LOVENOX SUBQ SCH ×2 (08:27→16:44)
[2019-02-11] MEDS: NICODERM PATCH TD SCH (08:37)
[2019-02-11] MEDS: EFFEXOR PO SCH (08:37)
[2019-02-11] MEDS: XANAX PO SCH ×3 (08:37→16:14)
[2019-02-11] MEDS: PREDNISONE PO SCH (08:37)
[2019-02-11] MEDS: ZANTAC PO SCH ×3 (08:38→22:38)
[2019-02-11] MEDS: MOTRIN PO PRN (08:42)
--- NOTE | 2019-02-11 09:35 | Diag Imaging Result Doc PS360 ---
EXAM: ABDOMEN FLAT/UPRIGHT HISTORY: pain TECHNIQUE: Flat and upright, two views COMPARISON: 02/10/2019 FINDINGS: No free air beneath the diaphragm. There are multiple air distended loops of small bowel similar to the prior exam. Stool is found in the proximal colon. Mild to moderate scoliosis. No organomegaly. IMPRESSION: Ileus versus obstruction. A CT may be beneficial. Electronically signed by Grupo Nelson 02/11/2019 9:33 AM
[2019-02-11] MEDS ORDERED: D5 NS 1,000 ML IV SCH (09:51)
[2019-02-11] MEDS: NS 1,000 ML IV SCH (10:44)
[2019-02-11] MEDS: CLINIMIX E 4.25%-5% SOLUTION 1,000 ML IV SCH (10:45)
[2019-02-11] MEDS: ATIVAN IV PRN (10:56)
--- NOTE | 2019-02-11 13:26 | PROGRESS NOTE ---
DATE: 02/11/2019 SUBJECTIVE: The patient is alert. She is awake. She is oriented to person and place. She is anxious. Her abdomen is still distended. X-ray showed ileus versus obstruction. So I asked for a CT scan pending report. Also I consulted already Surgery Department, pending evaluation and recommendation. She is not having nausea and vomiting and actually this patient has been asking for food. Since she is n.p.o., I will put her on Clinimix for the time being. OBJECTIVE: Vital Signs: Temperature 97.9 degrees, pulse 80, respiratory rate 24, blood pressure 114/75. Oxygen saturation 100% on 2 L of nasal cannula. HEENT: Head normocephalic. No trauma. PERRLA. Neck: Supple. No JVD. No masses. Central trachea. Chest: Decreased breath sounds globally with prolonged expiratory phase and scattered crepitus bilaterally. Abdomen: Distended mostly at the level of the lower abdomen and tender to palpation. No signs of peritoneal irritation. She has some bowel sounds. Extremities: No edema. No clubbing. No cyanosis. Decreased muscle mass/cachexia. Neurological: This patient is awake, alert. She is following commands on and off. She is anxious. She is answering some of my questions. She moves all 4 extremities. LABORATORY: WBC 6.6, hemoglobin 10.5, hematocrit 30.5, platelets 297,000. Sodium 131, potassium 4.4, chloride 97, bicarbonate 24, BUN 17, creatinine 0.2, glucose 95, calcium 8.4. ASSESSMENT AND PLAN: 1. Metabolic encephalopathy, no big changes compared with yesterday. She is oriented to person and place. She is extremely anxious still and she is confused about what is happening right now and/or what happened before and how she ended up in the hospital. I have ordered an MRI and also once I have the report, we will get Neurology Department. For now we will hold off on this study because she has abdominal distention and she just had a CT scan done, but it is pending. 2. Hyperglycemia, resolved. 3. Abdominal distention. This is a new onset. This started yesterday and she is not having nausea or vomiting. We disimpacted a little bit this lady and she had a hard bowel movement, but her bowel is distended in the x-ray. I requested a CT scan and Surgery Department evaluation. 4. Lactic acidosis, likely secondary to volume depletion, better. 5. Chronic obstructive pulmonary disease, not in exacerbation, probably advanced. 6. Hyponatremia, probably this patient has a component of SIADH, sodium level has been stable. 7. Deep vein thrombosis prophylaxis with Lovenox. 8. Generalized weakness, Physical Therapy already on board. 9. Pressure ulcer at the level of the sacral area. For now, we will cover the lesion, it is not an open wound. This patient has been recently hospitalized and discharged home. As per the son, she has she has she has been having mental changes for the past 2 or 3 months. She has been texting the family with no reason at different times of day, including really late during the night about 3 a.m., and the messages do not make any sense, sometimes they are not even words, this patient has either a psychiatric illness and/or dementia. I have requested an MRI, but this has not been done yet and also probably we need to get Neurology Department evaluation to check on this patient once the MRI is done. Since she has abdominal distention, we went ahead and did a CT scan of the abdomen. The results are pending. Surgery Department has been consulted as well. We will monitor this patient closely. This patient cannot go home once she is ready to be discharged. The family has requested to send this patient to an LTAC, possible hospice, Palliative Care on board. cc: Jose Raul Beard MD
--- NOTE | 2019-02-11 13:33 | Diag Imaging Result Doc PS360 ---
EXAM: CT ABD/PELVIS W/PO AND IV CON 02/11/2019 HISTORY: R/O abdominal obstruction TECHNIQUE: This exam was performed using automated exposure control, adjustment of mA or kV according to patient size, and/or use of iterative reconstruction technique. COMMENT: There is ill-defined opacity in both lower lobes as well as the inferior lingula. There is COPD. The are opacities are much worse than on 11/27/2018. There are bilateral pleural effusions. There is apparent ascites. There is anasarca. The pleural effusions and ascites were not present previously. There is dilatation of the infrarenal abdominal aorta into segments, to a maximum AP dimension of 3.6 cm distally, and 2.5 cm more proximally. This has not changed significantly since the previous study. There are multiple distended small bowel loops. This is much worse than on the previous study. The stomach is slightly distended. There is stool in the right colon. The colon is not distended. There are no gallstones. There are calcifications in the pancreatic head and in the spleen. The adrenal glands are not enlarged. The right kidney is slightly hydronephrotic in appearance. This has not changed since the previous study, otherwise the left kidney is with out evidence of hydronephrosis or mass. Pelvis: There is a Sorto catheter in the bladder. There are numerous fluid distended small bowel loops in the pelvis. The rectosigmoid colon is not distended. The appendix is not conclusively identified. There may be a small amount of the distal small bowel which is not distended but the majority of the small bowel loops are markedly distended. There are degenerative disc and facet changes in the lumbar spine. IMPRESSION: Distal small bowel obstruction. Worsened atelectasis versus pneumonia in the lower lobes, pleural effusions, ascites, and anasarca. Electronically signed by Butch Del Rio 02/11/2019 1:31 PM
--- NOTE | 2019-02-11 14:01 | Diag Imaging Result Doc PS360 ---
EXAM: MRI BRAIN W/CONTRAST 02/10/2019 HISTORY: latered mental status TECHNIQUE: T1 sagittal, axial and post gadolinium enhanced axial with coronal reformation, T2, FLAIR, DWI axial and coronal gradient echo. COMMENT: There are no previous MRI studies available for comparison. There is an empty sella. There is no evidence of mass effect, bleed, or abnormal extra-axial fluid collection. There is increased T2-weighted signal intensity in the azalea and lower midbrain. There is no evidence of restricted diffusion. There is no evidence of abnormal gadolinium enhancement. 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 Electronically signed by Butch Del Rio 02/11/2019 1:59 PM
[2019-02-11] MEDS ORDERED: ROBINUL ONE ×2 (15:50→16:59)
[2019-02-11] MEDS ORDERED: XYLOCAINE-MPF 2% ONE (15:50)
[2019-02-11] MEDS ORDERED: DIPRIVAN 1% ONE (15:50)
--- NOTE | 2019-02-11 16:06 | CONSULTATION ---
DATE OF CONSULTATION: 02/11/2019 HISTORY OF PRESENT ILLNESS: Ms Yana Lambert was hospitalized initially on 02/07/2019 through the emergency department with altered mental status. She underwent a head CT and was admitted. Her abdomen has become distended and we were asked to evaluate her. X-ray suggests a small bowel obstruction. She has had a previous left inguinal hernia repair and a tubal ligation but otherwise, no abdominal surgery. PAST MEDICAL HISTORY: COPD, hyponatremia, gastroesophageal reflux disease, malnutrition. PAST SURGICAL HISTORY: She has had a left inguinal hernia repair, tonsillectomy, tubal ligation. SOCIAL HISTORY: She is . She is a smoker. FAMILY HISTORY: Unknown. ALLERGIES: Diclofenac, doxycycline, tetanus, and Darvon. MEDICATIONS: Unable to obtain. REVIEW OF SYSTEMS: A 14 point review of systems was performed and was essentially negative. PHYSICAL EXAMINATION: General: Ms. Lambert is a middle aged white female, very slim. She is awake, cooperative. HEENT: No jaundice. No oral lesions. Lymphatic: No cervical or supraclavicular lymphadenopathy. Heart: Regular rate. Lungs: Have expiratory wheezing and some crackles at the base. She has mild shortness of breath. Abdomen: Distended. It is nontender to palpation. There is no palpable mass. There is a well-healed left inguinal hernia scar. There is no evidence of recurrent hernia. There is no evidence of other hernia. She had no costovertebral tenderness. Rectal: She had what appeared to be some anal warts. There was no mass in the rectum. No stool in the rectum. IMAGING: Abdominal films suggest dilated loops of small bowel. A CT scan of her abdomen and pelvis was performed which suggest a distal small bowel obstruction. She does not have an NG tube in. She has not had any nausea or vomiting. PLAN: If she becomes nauseated we will place an NG tube. If she continues to have abdominal distention with no improvement, we will take her to surgery for exploratory laparotomy. cc: Liza King MD
[2019-02-11] MEDS ORDERED: KEFZOL 1 GM/D5W 1 GM/50 ML IVPB ONE (16:20)
[2019-02-11] MEDS ORDERED: OFIRMEV 1000 MG/ISOTONIC SOLN 1,000 MG/100 ML BOTTLE ONE (16:37)
[2019-02-11] MEDS ORDERED: ZOFRAN ONE (16:40)
[2019-02-11] MEDS ORDERED: NEOSTIGMINE ONE (16:59)
[2019-02-11] MEDS ORDERED: NEOSPORIN OINTMENT PACKET ONE (17:04)
--- NOTE | 2019-02-11 17:33 | OPERATIVE NOTE ---
PROCEDURE DATE: 02/11/2019 PREOPERATIVE DIAGNOSIS: Small bowel obstruction. POSTOPERATIVE DIAGNOSIS: 1. Distal small bowel obstruction. 2. Meckel diverticulum. PRINCIPAL PROCEDURE: 1. Exploratory laparotomy with lysis of adhesions. 2. Open appendectomy. 3. Excision of Meckel diverticulum. SURGEON: Liza King MD. ANESTHESIA: General. ESTIMATED BLOOD LOSS: 25 mL. DRAINS: None. INDICATIONS: Yana Cuello is a 68-year-old very slim white female with COPD who was hospitalized with mental status changes but her abdomen has become distended and x-ray suggested distal small-bowel obstruction. She had no hernias on exam. She has only had a inguinal hernia repair and a tubal ligation but we felt she could have a small bowel obstruction and this been going on for now the day, we felt we should operate on her. FINDINGS: Her bowel was dilated throughout its length. If there was any obstruction it was right at the ileocecal valve where it could have been twisted. We made sure that all adhesions in this area were taken down. We did an open appendectomy using a TA 30 blue load and we also removed a Meckel diverticulum from the antimesenteric side of her ilium. We ran the entire small bowel. Made sure there was no other problems. We milked the contents of the small bowel back into the stomach where it was removed using NG suction. DESCRIPTION OF PROCEDURE: The patient was brought to the operating room, placed supine, received general anesthesia, was intubated. Sorto catheter tube was placed. NG tube was placed and I made a midline incision with a 10 blade scalpel. This incision was carried down through what little subcutaneous tissue she had to the midline fascia, which was incised carefully using the cautery and we entered the abdomen. Her small bowel was diffusely dilated. We brought it up out of our incision and looked for any adhesions. If there were any adhesions causing this bowel obstruction they were at the ileocecal valve and she could have had a twisting of the ilium at this area causing obstruction. Any adhesions were taken down carefully using mostly cautery. I did an open appendectomy. She had very thin appendix that was retrocecal and kind of pulling on the area of the ileocecal valve. I mobilized it using the cautery and then I came across the base with a TA 30 stapler. She also had Meckel diverticulum and I felt I should remove it its antimesenteric side about 2 feet from the ileocecal valve in the ilium and again I used a reload on the TA 30 blue load stapler and came across the Meckel diverticulum and removed it. I ran the entire small bowel. I milked back all fluid and gas of the small bowel into the stomach where it was removed using NG suction. We removed at least 2 canisters full. I explored the rest of the abdomen. She did have some hard stool in her ascending colon and transverse colon. Descending colon was mostly decompressed. I could palpate no mass in the abdomen. No other intraabdominal pathology was noted. I made sure that the bowel was placed back in its anatomically correct position and then I closed the midline wound in 1 layer with a running #1 Maxon stitch. The skin was closed with a skin clip events and promotions assistant. Dressings were applied. Will leave NG tube in and Sorto catheter tube. She will go the recovery room and then return to the floor. cc: Liza King MD
[2019-02-11] MEDS ORDERED: D5 1/2 NS + KCL 20 MEQ 1,000 ML ONE (17:36)
[2019-02-11] MEDS: D5 1/2 NS + KCL 20 MEQ 1,000 ML IV SCH (18:02)
[2019-02-11] MEDS ORDERED: NS 500 ML IV ONE (18:35)
[2019-02-11] MEDS: OFIRMEV 1000 MG/ISOTONIC SOLN 1,000 MG/100 ML BOTTLE IV SCH (22:26)
[2019-02-11] MEDS: MORPHINE IV PRN (22:48)
[2019-02-12] MEDS: XOPENEX NEB INH SCH ×6 (03:15→23:36)
[2019-02-12] MEDS: ATROVENT NEB INH SCH ×6 (03:15→23:36)
[2019-02-12] MEDS: OFIRMEV 1000 MG/ISOTONIC SOLN 1,000 MG/100 ML BOTTLE IV SCH ×3 (04:05→16:17)
[2019-02-12] MEDS: ATIVAN IV PRN ×3 (04:05→21:49)
[2019-02-12] MEDS: D5 1/2 NS + KCL 20 MEQ 1,000 ML IV SCH ×3 (05:42→19:04)
[2019-02-12 07:15] LABS: BASO# 0.01 X1000 (0.0-0.2); BASO% 0.2 % (0.0-0.8); EOS# 0.06 X1000 (0.0-0.7); HEMATOCRIT 28.9 % (37.0-47.0); HEMOGLOBIN 9.8 g/dL (12.0-16.0); LYMPH# 0.92 X1000 (1.2-3.4); LYMPH% 15.9 % (20.5-51.1); MCH 30.8 PG (27-31); MCHC 33.9 g/dL (33-37); MCV 90.9 FL (81-99); MONO# 0.35 X1000 (0.11-0.59); MPV 9.2 FL (7.4-10.4); NEUT# 4.45 X1000 (1.4-6.5); NEUT% 76.9 % (42.2-75.2); PLT 202 X1000 (130-400); RBC 3.18 XMIL (4.2-5.4); RDW 14.6 % (11.5-14.5); WBC 5.79 X1000 (4.8-10.8)
[2019-02-12 08:00] LABS: AGAP 1; ALBUMIN 2.3 g/dL (3.5-5.0); ALKALINE PHOSPHATASE 62 U/L (32-104); BUN 11 mg/dL (8-22); CALCIUM 8.2 mg/dL (8.8-10.2); CHLORIDE 91 mmol/L (98-107); COSMO 253; CREATININE 0.2 mg/dL (0.5-0.9); ESTIMATED GFR > 60; GLUCOSE 98 mg/dL (70-104); GOT 23 U/L (10-30); GPT 28 U/L (10-36); POTASSIUM 4.4 mmol/L (3.5-5.1); SODIUM 126 mmol/L (136-145); TCO2 34 mmol/L (25-35); TOTAL BILIRUBIN 0.28 mg/dL (0.20-1.00); TOTAL PROTEIN 4.5 g/dL (6.3-8.3)
--- NOTE | 2019-02-12 09:01 | PROGRESS NOTE ---
DATE: 02/12/2019 Ms. Lambert is now postop day 1 from exploratory laparotomy for a small bowel obstruction. We also removed her appendix and Meckel's diverticulum at the time of surgery. She did not have much intra-abdominal scarring. Her distal ilium could have been twisted at the ileocecal valve as the cause for obstruction. Today she is sitting up. She has an NG tube and Sorto catheter tube in place. She seems to be comfortable. Her abdomen is less distended. She has not had much out of her NG tube. Her heart rate is 88, blood pressure 99/57, O2 saturation 97%. She is afebrile. Her white blood count is normal, hematocrit is 29%. BUN 11, creatinine 0.2. She does have work of breathing because of her COPD. I spoke with her son after surgery. I think we ought to leave the NG tube for now. We need to remove her Sorto catheter tube tomorrow and increase her activity. I will be out of town through the weekend starting Monday and I will ask [facility] to cover in my absence. cc: Liza King MD
[2019-02-12] MEDS: EFFEXOR PO SCH (09:12)
[2019-02-12] MEDS: NICODERM PATCH TD SCH (09:12)
[2019-02-12] MEDS: PREDNISONE PO SCH (09:12)
[2019-02-12] MEDS: XANAX PO SCH ×3 (09:12→16:15)
[2019-02-12] MEDS: ZANTAC PO SCH ×2 (09:12→21:49)
[2019-02-12] MEDS: NS 1,000 ML IV SCH (10:44)
[2019-02-12] MEDS: CLINIMIX E 4.25%-5% SOLUTION 1,000 ML IV SCH (12:54)
[2019-02-12] MEDS: MORPHINE IV PRN (15:19)
[2019-02-12] MEDS: LOVENOX SUBQ SCH ×2 (16:21→16:55)
--- NOTE | 2019-02-12 16:38 | PROGRESS NOTE ---
DATE: 02/12/2019 On exam she was resting sleeping comfortably, breathing comfortably. Temperature 98.2 degrees, pulse 95, respirations 22, blood pressure 108/57. Pupils are equal. Lungs are clear in all lung gee anterolateral. Cardiovascular. Regular rhythm, rate without murmur or S3. Abdomen is soft. Skin is warm and dry. Urine output was 3300 mL. ASSESSMENT AND PLAN: 1. This is postoperative day 1 for exploratory laparotomy, small-bowel obstruction, removed appendix and [place] diverticulum at the time of surgery. She did not have much anterior abdominal scarring. Distal ileum had been twisted at the ileocecal valve and probably is cause of obstruction so seems to be healing. 2. Hyperglycemia resolved. 3. Abdominal distention from her small bowel obstruction and doing much better. 4. Lactic acidosis secondary to volume depletion which is better. 5. Chronic obstructive pulmonary disease and not in exacerbation. Good air and gas exchange. 6. Hyponatremia, probably a component of syndrome of inappropriate antidiuretic hormone secretion but the sodium has improved and stable. 7. Deep venous thrombosis prophylaxis on Lovenox. 8. General weakness. Continue physical therapy. 9. Pressure ulcer at the level sacral area. Continue topical care. Review of her orders, getting acetaminophen IV q.6 and Xanax 0.25 mg t.i.d., amino acids are Clinimix 45 mL an hour, D5 1/2 normal saline at 80 mL an hour, Motrin 400 mg p.o. q.8 hours, ipratropium bromide 0.5 mg q.4 hours, Xopenex inhalation 1.25 q.4 hours and Ativan 0.5 mg IV q.4 hours p.r.n., nicotine patch 14 mg daily, prednisone 20 mg a day, Zantac 150 mg b.i.d. and Effexor 150 mg p.o. daily. Continue present treatment. REVIEW OF LAB: Hematocrit 28, hemoglobin 9.8, white blood cell count 5790, platelet count is 202,000. Electrolytes look good, albumin is 2.3. cc: Primitivo Zavala MD
[2019-02-13] MEDS: XOPENEX NEB INH SCH ×6 (03:00→22:47)
[2019-02-13] MEDS: ATROVENT NEB INH SCH ×6 (03:00→22:46)
[2019-02-13] MEDS: D5 1/2 NS + KCL 20 MEQ 1,000 ML IV SCH ×4 (04:23→21:48)
[2019-02-13] MEDS: CLINIMIX E 4.25%-5% SOLUTION 1,000 ML IV SCH (05:42)
--- NOTE | 2019-02-13 05:53 | GENERAL SURGERY PROGRESS NOTE ---
DATE: 02/13/2019 SUBJECTIVE: The patient seems to be doing okay. She says she passed a little bit of gas. She is not sick to her stomach. OBJECTIVE: Vital Signs: The patient is currently afebrile. Her vital signs are stable. General: No acute distress. Cardiovascular: Regular rate and rhythm. Lungs: Grossly clear. Abdomen: Soft, nondistended. Some faint bowel sounds auscultated. Incision with dressing in place. LABORATORY DATA: Reviewed from yesterday. Her sodium was 126 yesterday. ASSESSMENT AND PLAN: The patient is a 68-year-old female currently postoperative day #2 from exploratory laparotomy, open appendectomy and Meckel's diverticulectomy. On postoperative stay at this time she seems to be doing okay. She has had some start to return of bowel function, so we will give her clear liquids. I did discuss with her that she gets sick to her stomach to back off the liquids. At this point we need the patient to mobilize. We will apply SCDs, and incentive spirometer. The patient is on Lovenox, Zantac, and also Clinimix. We will continue to monitor. cc: Eben Lao MD
[2019-02-13] MEDS: MOTRIN PO PRN ×2 (09:12→18:55)
[2019-02-13] MEDS: XANAX PO SCH ×3 (09:13→21:52)
[2019-02-13] MEDS: ZANTAC PO SCH ×2 (09:13→21:36)
[2019-02-13] MEDS: EFFEXOR PO SCH (09:13)
[2019-02-13] MEDS: NICODERM PATCH TD SCH (09:13)
[2019-02-13] MEDS: PREDNISONE PO SCH (09:13)
[2019-02-13] MEDS: MORPHINE IV PRN ×2 (11:19→15:43)
--- NOTE | 2019-02-13 17:30 | PROGRESS NOTE ---
DATE: 02/13/2019 SUBJECTIVE: She is feeling better, but she feels like she needs an enema and is requesting one. She feels like her bowels are about to move. OBJECTIVE: Vital signs: She remains afebrile, temperature 98.4 degrees, pulse 100, respirations 20, blood pressure 92/70. HEENT: Pupils are equal and round. Lungs: Clear in all lung gee. Cardiovascular: Regular rhythm and rate without murmur or S3. Urine output is 2500 mL. ASSESSMENT AND PLAN: 1. Postoperative day 2 from exploratory laparotomy, open appendectomy with [place]'s diverticulectomy. Seems to be doing well. I would like an enema, so we will let her have a soapsuds enema I guess q.12 p.r.n. Continue her SCDs, incentive spirometry. 2. Hypoglycemia, resolved. 3. Lactic acidosis secondary to volume depletion, which is better. 4. Chronic obstructive pulmonary disease. She is not in exacerbation. 5. Hyponatremia. I suspect inappropriate ADH. Her sodium is 126 right now. Continue to follow. 6. Deep venous thrombosis prophylaxis. On SCDs. I think the Lovenox has been stopped. 7. General weakness, deconditioning. Continue physical therapy. 8. Pressure ulcer on the sacrum. Continue topical care. She does seem to be improving. I think she is trying to go home with home health, is our plan. REVIEW OF ORDERS: She is on Xanax 0.25 mg t.i.d. She is on Clinimix 45 mg every hour, D5 0.5 normal saline at 80 mL an hour, ipratropium bromide inhalation treatments 0.5 mg q.4 hours p.r.n., Xopenex 1.25 inhalation q.4 hours, Ativan 0.5 mg IV q.4 hours p.r.n., nicotine patch 14 mg daily, prednisone 20 mg a day, Zantac 150 mg b.i.d., and Effexor 150 mg a day. cc: Primitivo Zavala MD
[2019-02-13] MEDS: LOVENOX SUBQ SCH (18:55)
[2019-02-13] MEDS: ATIVAN IV PRN (21:37)
[2019-02-14] MEDS: XOPENEX NEB INH SCH ×6 (03:05→23:55)
[2019-02-14] MEDS: ATROVENT NEB INH SCH ×6 (03:05→23:55)
[2019-02-14] MEDS: CLINIMIX E 4.25%-5% SOLUTION 1,000 ML IV SCH (04:10)
--- NOTE | 2019-02-14 05:53 | GENERAL SURGERY PROGRESS NOTE ---
DATE: 02/14/2019 SUBJECTIVE: The patient seems to be doing okay. She is not sick to her stomach, but she has not consistently passed gas. She has not had a bowel movement, although she had a little bit of liquid after she was given an enema, but she tolerated her clear liquids. OBJECTIVE: Vital Signs: The patient is currently afebrile. Her vital signs are stable. General: No acute distress. Cardiovascular: Regular rate and rhythm. Lungs: Grossly clear. Abdomen: Soft, nondistended, some bowel sounds auscultated, incision with dressing intact. LABORATORY: None from this morning and none from yesterday. ASSESSMENT/PLAN: A 68-year-old female, currently postoperative day #3 from exploratory laparotomy, open appendectomy and Meckel's diverticulectomy. Postoperative state: At this time, she seems to be doing okay. We will await more definitive consistent return of bowel function before advancing her diet. She needs to mobilize. She does have SCDs and incentive spirometer. She is on Lovenox and Zantac and also on Clinimix. We will continue to monitor. cc: Eben Lao MD
[2019-02-14] MEDS: D5 1/2 NS + KCL 20 MEQ 1,000 ML IV SCH ×3 (08:26→20:17)
[2019-02-14] MEDS: PREDNISONE PO SCH (08:27)
[2019-02-14] MEDS: ZANTAC PO SCH ×2 (08:27→20:15)
[2019-02-14] MEDS: XANAX PO SCH ×3 (08:27→20:15)
[2019-02-14] MEDS: MOTRIN PO PRN ×2 (08:27→20:15)
[2019-02-14] MEDS: NICODERM PATCH TD SCH (08:27)
[2019-02-14] MEDS: EFFEXOR PO SCH (08:27)
[2019-02-14] MEDS: MORPHINE IV PRN ×2 (13:42→22:44)
[2019-02-14] MEDS: LACTULOSE PO SCH ×2 (14:21→20:15)
[2019-02-14] MEDS: MIRALAX PO SCH (14:21)
--- NOTE | 2019-02-14 16:00 | PROGRESS NOTE ---
DATE: 02/14/2019 SUBJECTIVE: She does feel better. She has had some bowel movements. We are going to go ahead and put her on a laxative, will use lactulose. She would like to try some solid food, so I will put her on a soft diet. She wants gluten free. OBJECTIVE: Vital Signs: She remains afebrile. Temp 98.0, pulse 100, respirations 20, blood pressure 96/56. Pupils are equal and round. Neck: No distended neck veins. Lungs: Clear in all lung gee. Cardiovascular: Regular rhythm and rate, without murmur or S3 . Abdomen: Soft. Skin: Skin is warm and dry. Urine output is 1200 mL. ASSESSMENT AND PLAN: 1. Postoperative day #3 for exploratory laparotomy, open appendectomy with [place]'s diverticulectomy. She is doing very well. I advanced her diet to a soft diet. Add lactulose to her regimen. I know Surgery had put wanted to wait, but she is begging for, so we will try some soft diet tonight. She does have SCDs on and using incentive spirometry. 2. Hypoglycemia, resolved. 3. Lactic acidosis. We think was secondary to volume depletion. Better. 4. Chronic obstructive pulmonary disease. No sign of exacerbation. 5. Hyponatremia, corrected. 6. Deep venous thrombosis prophylaxis, SCDs. 7. General weakness and deconditioning. Continue physical therapy. 8. Pressure ulcer on her sacrum with continue topical care. Review of her lab, will recheck a basic metabolic profile tomorrow with magnesium and we will check another CBC. Check hematocrit. Hematocrit is 28, hemoglobin 9.8. cc: Primitivo Zavala MD
[2019-02-14] MEDS: LOVENOX SUBQ SCH (16:47)
[2019-02-15] MEDS: MORPHINE IV PRN ×5 (02:52→21:40)
[2019-02-15] MEDS: XOPENEX NEB INH SCH ×6 (04:00→23:36)
[2019-02-15] MEDS: ATROVENT NEB INH SCH ×6 (04:00→23:36)
[2019-02-15] MEDS: CLINIMIX E 4.25%-5% SOLUTION 1,000 ML IV SCH (05:54)
--- NOTE | 2019-02-15 06:54 | GENERAL SURGERY PROGRESS NOTE ---
DATE: 02/15/2019 SUBJECTIVE: The patient seems to be doing okay. She was advanced to a GI soft diet by the hospitalist. She seems to be doing okay. She is a little sick to her stomach, but nothing terrible. She has passed gas and had some small bowel movements. OBJECTIVE: Vital Signs: Patient is currently afebrile. Her vital signs are stable. General: No acute distress. Cardiovascular: Regular rate and rhythm. Lungs: Grossly clear. Abdomen: Soft, appropriately tender. Dressing in place. ASSESSMENT AND PLAN: A 68-year-old female, currently postoperative day number 4 from a exploratory laparotomy, open appendectomy, and Meckel's diverticulectomy Postoperative state: At this time, she is on a regular diet and seems to be doing okay. She has a little bit of nausea, so we would like to see the nausea improve before we discharge her, but I think she is looking at discharge in the near future. cc: Eben Lao MD
[2019-02-15] MEDS: ADVAIR 250/50 DISKUS INH SCH ×3 (09:18→20:41)
[2019-02-15] MEDS: SPIRIVA INH SCH ×2 (09:19→10:12)
[2019-02-15 09:44] LABS: BASO# 0.02 X1000 (0.0-0.2); EOS# 0.02 X1000 (0.0-0.7); HEMATOCRIT 36.1 % (37.0-47.0); HEMOGLOBIN 12.2 g/dL (12.0-16.0); LYMPH# 0.41 X1000 (1.2-3.4); LYMPH% 20.4 % (20.5-51.1); MCH 31.6 PG (27-31); MCHC 33.8 g/dL (33-37); MCV 93.5 FL (81-99); MONO# 0.39 X1000 (0.11-0.59); MONO% 19.4 % (1.7-9.3); MPV 9.2 FL (7.4-10.4); NEUT# 1.17 X1000 (1.4-6.5); NEUT% 58.2 % (42.2-75.2); PLT 273 X1000 (130-400); RBC 3.86 XMIL (4.2-5.4); WBC 2.01 X1000 (4.8-10.8)
[2019-02-15 10:10] LABS: AGAP 7; ALB/GLOB RATIO 1.1; ALBUMIN 2.9 g/dL (3.5-5.0); ALKALINE PHOSPHATASE 80 U/L (32-104); BUN 8 mg/dL (8-22); CALCIUM 8.6 mg/dL (8.8-10.2); CHLORIDE 93 mmol/L (98-107); COSMO 254; CREATININE 0.2 mg/dL (0.5-0.9); ESTIMATED GFR > 60; GLUCOSE 100 mg/dL (70-104); GOT 22 U/L (10-30); GPT 26 U/L (10-36); MAGNESIUM 1.8 mg/dL (1.5-2.7); POTASSIUM 4.2 mmol/L (3.5-5.1); SODIUM 127 mmol/L (136-145); TCO2 27 mmol/L (25-35); TOTAL BILIRUBIN 0.16 mg/dL (0.20-1.00); TOTAL PROTEIN 5.5 g/dL (6.3-8.3)
[2019-02-15] MEDS: MIRALAX PO SCH ×2 (10:46→21:36)
[2019-02-15] MEDS: LACTULOSE PO SCH ×2 (10:47→21:36)
[2019-02-15] MEDS: PREDNISONE PO SCH (10:47)
[2019-02-15] MEDS: ZANTAC PO SCH ×2 (10:47→21:35)
[2019-02-15] MEDS: D5 1/2 NS + KCL 20 MEQ 1,000 ML IV SCH ×2 (10:47→21:37)
[2019-02-15] MEDS: EFFEXOR PO SCH (10:47)
[2019-02-15] MEDS: XANAX PO SCH ×3 (10:47→21:36)
[2019-02-15] MEDS: NICODERM PATCH TD SCH (10:47)
[2019-02-15] MEDS ORDERED: GOLYTELY PO ONE (13:33)
--- NOTE | 2019-02-15 14:30 | PROGRESS NOTE ---
DATE: 02/15/2019 SUBJECTIVE: Ms. Cuello is miserable. She is not having a bowel movement. Abdomen is upset. They tried to disimpact her and tried to give her enemas. I am going to put her back to clear liquids. We will try to let her sip on some Colyte. OBJECTIVE: Vital Signs: Temperature 97.9 degrees, pulse 100, respirations 20, blood pressure 122/76. HEENT: Pupils are equal and round. Lungs: Clear in all lung gee. Cardiovascular: Regular rhythm and rate without murmur or S3. Abdomen: Soft. Skin: Warm and dry. ASSESSMENT AND PLAN: 1. Postoperative day #4 exploratory laparotomy, open appendectomy, [place]'s diverticulum. I am going to put her back to clear liquids. She is not having a bowel movement. She is having some nausea, and we are going to let her sip on some Colyte. I will increase the MiraLAX to twice a day. She is on lactulose. We have tried some soapsuds enemas to see if we can get her a little more comfortable. 2. Hypoglycemia, resolved. 3. Lactic acidosis on presentation that has resolved. 4. Chronic obstructive pulmonary disease. No sign of exacerbation. 5. Hyponatremia. Sodium is around 127, stable. Looking over her orders, I do not see anything else to try. Lactulose 30 mL twice a day. MiraLAX is going to be twice a day. We will try the Colyte. Will go back to clear liquid diet. cc: Primitivo Zavala MD
[2019-02-15] MEDS: ZOFRAN IV PRN (14:35)
[2019-02-15] MEDS: ATIVAN IV PRN ×2 (15:04→21:37)
[2019-02-15] MEDS: LOVENOX SUBQ SCH (18:33)
[2019-02-16] MEDS: MORPHINE IV PRN ×5 (02:50→20:38)
[2019-02-16] MEDS: ATIVAN IV PRN ×4 (02:51→20:38)
[2019-02-16] MEDS: ZANTAC PO SCH ×3 (02:56→20:44)
[2019-02-16] MEDS: ZOFRAN IV PRN (02:58)
[2019-02-16] MEDS: ATROVENT NEB INH SCH ×5 (03:20→23:10)
[2019-02-16] MEDS: XOPENEX NEB INH SCH ×6 (04:02→23:09)
[2019-02-16] MEDS: CLINIMIX E 4.25%-5% SOLUTION 1,000 ML IV SCH (06:27)
[2019-02-16] MEDS: SPIRIVA INH SCH (07:52)
[2019-02-16] MEDS: ADVAIR 250/50 DISKUS INH SCH ×2 (07:52→19:26)
[2019-02-16] MEDS: NICODERM PATCH TD SCH (08:39)
[2019-02-16] MEDS: PREDNISONE PO SCH (08:41)
[2019-02-16] MEDS: EFFEXOR PO SCH (08:41)
[2019-02-16] MEDS: XANAX PO SCH ×3 (08:42→20:45)
[2019-02-16] MEDS: LACTULOSE PO SCH ×2 (11:26→20:45)
[2019-02-16] MEDS: MIRALAX PO SCH ×2 (11:26→20:45)
--- NOTE | 2019-02-16 12:14 | PROGRESS NOTE ---
DATE: 02/16/2019 SUBJECTIVE: She feels better than yesterday. She did have a couple small bowel movements. She is just very tired and weak. I have her back on clear liquids and she remains afebrile. OBJECTIVE: Vital Signs: Temperature 97.6 degrees, pulse 103, respirations 22, blood pressure 109/54. Eyes: Pupils are equal and round. Lungs: Clear in all lung gee. Cardiovascular exam: Regular rhythm and rate without murmur or S3. LABORATORY DATA: From yesterday, sodium 127, potassium 4.2, chloride 93. BUN 8, creatinine 0.2. White count 2010, hematocrit 36, platelet count 273,000. ASSESSMENT AND PLAN: 1. Postoperative day #5 exploratory laparotomy, open appendectomy, [place]'s diverticulectomy. So, I went back to clear liquids. She had trouble with constipation, obstipation. I put her on a little Colyte and she did have a couple bowel movements, so she does report she feels a little better. Very weak. 2. Hypoglycemia, resolved. 3. Lactic acidosis on presentation. I think that is better. 4. Chronic obstructive pulmonary disease. No sign of exacerbation. 5. Hyponatremia has been supplemented. I think we will check some more lab in the morning. CURRENT MEDICATIONS: Xanax 0.25 mg t.i.d., Clinimix 45 mL an hour, D 5 one-half normal saline at 80 mL an hour, Motrin 400 mg p.o. q. 8 hours, ipratropium bromide 0.5 mg inhalation q. 4 hours, lactulose 30 mL b.i.d., Xopenex 1.25 mg q. 4 hours p.r.n., Ativan 0.5 mg q. 4 hours, nicotine patch 14 mg daily, polyethylene glycol 17 g p.o. b.i.d., prednisone 20 mg daily, Zantac 150 mg b.i.d., and tiotropium bromide inhalation 1 puff daily, Effexor 150 mg daily. cc: Primitivo Zavala MD
[2019-02-16] MEDS: D5 1/2 NS + KCL 20 MEQ 1,000 ML IV SCH ×2 (12:31→21:48)
--- NOTE | 2019-02-16 12:58 | GENERAL SURGERY PROGRESS NOTE ---
DATE: 02/16/2019 SUBJECTIVE: No acute events overnight. Unclear if she has had bowel function. No fevers. No tachycardia. OBJECTIVE: Vital Signs: Blood pressure 109/54, oxygen saturation 93% on 3 liters. General: She is awake, kind of grunts to command and questioning, but nonverbal. Abdomen: Mildly distended. Dressings in place. No cellulitis. Abdomen is soft. LABS: White count is down to 2, hematocrit is 36. Creatinine 0.2. Sodium is low at 127. ASSESSMENT/PLAN: This is a 68-year-old female status post exploratory laparotomy by Dr. King. Over the last several days, she has been improving. Her exam is benign. We will continue nutritional support and electrolyte repletion and medical management. cc: Nehemiah Em MD
[2019-02-16] MEDS: LOVENOX SUBQ SCH (17:29)
[2019-02-16] MEDS ORDERED: D5 1/2 NS + KCL 20 MEQ 1,000 ML IV SCH (21:10)
[2019-02-17 00:53] LABS: ALLEN TEST YES; BE 3.7 mmoll (-3.0-3.0); BLOOD TYPE ARTERIAL; HCO3-(ACT) 27.5 mmoll (20.0-26.0); O2(CT) 12.5 mL/dL (15.0-23.0); PCO2(98.6) 50 mmHg (35-45); SAMPLE BLOOD; SAO2 84.4 % (95.0-100.0); THB 10.8 g/dL (11.5-17.4); pH(98.6) 7.38 (7.35-7.45)
[2019-02-17 00:59] LABS: MODALITY NRB; O2HB 82.5 % (95.0-99.0); PO2(98.6) 46 mmHg (60-100)
[2019-02-17] MEDS: OFIRMEV 1000 MG/ISOTONIC SOLN 1,000 MG/100 ML BOTTLE IV PRN ×2 (01:33→13:20)
[2019-02-17] MEDS ORDERED: VANCOMYCIN IV PER PHARMACY MISC SCH (02:30)
[2019-02-17] MEDS: MAXIPIME 1 GM in NS 50 ML IV SCH ×2 (02:53→14:59)
[2019-02-17] MEDS: D5 1/2 NS + KCL 20 MEQ 1,000 ML IV SCH (02:54)
[2019-02-17] MEDS: ATROVENT NEB INH SCH ×6 (03:06→23:44)
[2019-02-17] MEDS: XOPENEX NEB INH SCH ×6 (03:06→23:45)
[2019-02-17] MEDS ORDERED: VANCOMYCIN 1,150 MG in NS 250 ML IV ONE (05:00)
[2019-02-17] MEDS: CLINIMIX E 4.25%-5% SOLUTION 1,000 ML IV SCH (06:37)
--- NOTE | 2019-02-17 07:02 | Diag Imaging Result Doc PS360 ---
EXAM: CHEST-PORTABLE HISTORY: resp failure TECHNIQUE: Portable chest COMPARISON: 02/07/2019 FINDINGS: There are bilateral basilar infiltrates on the current exam with small pleural effusions. There is also basilar atelectasis. No cardiomegaly. There calcified right hilar lymph nodes with scattered granuloma. IMPRESSION: Basilar infiltrates with atelectasis and small pleural effusions Electronically signed by Grupo Nelson 02/17/2019 7:00 AM
--- NOTE | 2019-02-17 07:12 | Diag Imaging Result Doc PS360 ---
EXAM: KUB ABDOMEN HISTORY: abd distention TECHNIQUE: Abdomen single view COMPARISON: 02/11/2019 FINDINGS: There are midline skin henry. Multiple air-filled loops of bowel. Distal right lower quadrant. No organomegaly. IMPRESSION: Air distended bowel likely representing an ileus Electronically signed by Grupo Nelson 02/17/2019 7:10 AM
[2019-02-17 07:29] LABS: HEMOGLOBIN 10.6 g/dL (12.0-16.0); LYMPH% 11.7 % (20.5-51.1); MCH 30.9 PG (27-31); MCHC 34.2 g/dL (33-37); MCV 90.4 FL (81-99); MONO# 0.06 X1000 (0.11-0.59); MONO% 3.5 % (1.7-9.3); MPV 9.5 FL (7.4-10.4); NEUT# 1.45 X1000 (1.4-6.5); NEUT% 84.8 % (42.2-75.2); PLT 272 X1000 (130-400); RBC 3.43 XMIL (4.2-5.4); RDW 14.1 % (11.5-14.5); WBC 1.71 X1000 (4.8-10.8)
[2019-02-17 07:44] LABS: BANDS 35 % (0-1); LYMPHS 15 % (21-51); MONO 15 % (1-9); SEGS 20 % (42-75)
[2019-02-17 07:54] LABS: AGAP 9; ALBUMIN 2.6 g/dL (3.5-5.0); ALKALINE PHOSPHATASE 67 U/L (32-104); BUN 28 mg/dL (8-22); CALCIUM 8.8 mg/dL (8.8-10.2); CHLORIDE 89 mmol/L (98-107); COSMO 255; CREATININE 0.3 mg/dL (0.5-0.9); ESTIMATED GFR > 60; GLUCOSE 93 mg/dL (70-104); GOT 28 U/L (10-30); GPT 26 U/L (10-36); MAGNESIUM 1.7 mg/dL (1.5-2.7); POTASSIUM 5.8 mmol/L (3.5-5.1); SODIUM 124 mmol/L (136-145); TCO2 26 mmol/L (25-35); TOTAL BILIRUBIN 0.26 mg/dL (0.20-1.00); TOTAL PROTEIN 5.3 g/dL (6.3-8.3)
[2019-02-17] MEDS: SPIRIVA INH SCH (08:16)
[2019-02-17] MEDS: ADVAIR 250/50 DISKUS INH SCH ×2 (08:16→20:33)
[2019-02-17] MEDS: PREDNISONE PO SCH (09:34)
[2019-02-17] MEDS: ZANTAC PO SCH (09:34)
[2019-02-17] MEDS: LACTULOSE PO SCH ×2 (09:34→22:15)
[2019-02-17] MEDS: EFFEXOR PO SCH (09:34)
[2019-02-17] MEDS: NICODERM PATCH TD SCH (09:34)
[2019-02-17] MEDS: MIRALAX PO SCH ×2 (09:34→22:15)
[2019-02-17 12:24] LABS: URINE SOURCE CATH
[2019-02-17 12:30] LABS: BILIRUBIN URINE NEGATIVE (NEGATIVE); BLOOD URINE NEGATIVE (NEGATIVE); COLOR YELLOW; GLUCOSE URINE NEGATIVE (NEGATIVE); KETONE URINE NEGATIVE (NEGATIVE); LEUKOCYTES URINE NEGATIVE (NEGATIVE); NITRITE URINE NEGATIVE (NEGATIVE); PROTEIN URINE TRACE mg/dL (NEGATIVE); SP GRAVITY URINE 1.022; TURBIDITY URINE CLEAR (CLEAR); UROBILINOGEN URINE NORMAL (NORMAL)
[2019-02-17 12:31] LABS: UR EPITHELIAL CELLS <10 /HPF (<10); URINE BACTERIA 4+ /HPF; URINE RBC <10 /HPF (<10); URINE WBC <10 /HPF (<10)
--- NOTE | 2019-02-17 12:56 | GENERAL SURGERY PROGRESS NOTE ---
DATE: 02/17/2019 SUBJECTIVE: She is tolerating some p.o. No vomiting. Unsure if she is having anything in the way of bowel function. OBJECTIVE: On exam, she is profoundly cachectic. Abdomen was soft, nontender, nondistended. DIAGNOSTIC STUDIES: Her white count is down to 1 this morning, hematocrit is 31. Creatinine 3, potassium is 5.8, sodium is 122. ASSESSMENT AND PLAN: This is a 68-year-old female status post exploratory laparotomy with appendectomy and diverticulectomy. Clinically she seems to be not doing well, although her bowels do seem to be functioning. She is having progressive abnormalities in her white count with now leukopenia of 0.71. Her ABG shows hypoxia with hypercapnia and she is hyponatremic with rising potassium. I have personally stopped her potassium-containing fluids. Her abdominal exam is benign and appropriate in the postoperative period. We will continue to follow her surgically. cc: Nehemiah Em MD
--- NOTE | 2019-02-17 16:22 | PROGRESS NOTE ---
DATE: 02/17/2019 SUBJECTIVE: This morning, she was very lethargic. She had received a lot of morphine yesterday and her breathing was struggling. We put her on BiPAP. I had them stop the morphine. She has had a couple bowel movements. She seems to be perking up a little more. PHYSICAL EXAMINATION: Temperature 97.5 degrees, pulse 100, respirations 20, blood pressure 101/58. Pupils are equal and round. Lungs are clear in all lung gee anterolateral. Mild scattered end expiratory wheezes appreciated. Abdomen is soft. Positive bowel sounds. No pedal edema. LABS: From today, white count 1710, hematocrit is 31, platelet count is 272,000. Chemistries: Sodium 124, potassium 5.8, chloride 89, BUN 28, creatinine 0.3. ASSESSMENT AND PLAN: Status post exploratory laparotomy, appendectomy, and [place]'s diverticulectomy. She is having more hard time breathing. I think we need to back off and stop the morphine altogether. She did have a couple of bowel movements yesterday. She is a little more awake and alert this morning. She has a nicotine patch on board. Getting MiraLAX twice a day, Zantac 150 mg twice a day which I will stop. She is getting Effexor 150 mg a day. I think I will stop that as well. I will stop anything that is not essential. cc: Primitivo Zavala MD
[2019-02-17] MEDS: LOVENOX SUBQ SCH (18:17)
[2019-02-18] MEDS: MAXIPIME 1 GM in NS 50 ML IV SCH (02:46)
[2019-02-18] MEDS: ATROVENT NEB INH SCH ×3 (03:00→11:34)
[2019-02-18] MEDS: XOPENEX NEB INH SCH ×4 (03:00→11:34)
[2019-02-18] MEDS ORDERED: LOPRESSOR PO SCH (08:00)
[2019-02-18] MEDS: ADVAIR 250/50 DISKUS INH SCH (08:27)
[2019-02-18] MEDS: SPIRIVA INH SCH (08:28)
[2019-02-18] MEDS ORDERED: MORPHINE IV PRN (10:06)
[2019-02-18] MEDS ORDERED: ATIVAN IV PRN (10:07)
[2019-02-18] MEDS: NICODERM PATCH TD SCH (10:10)
[2019-02-18] MEDS: PREDNISONE PO SCH (10:11)
[2019-02-18] MEDS: LACTULOSE PO SCH (10:11)
[2019-02-18] MEDS: MIRALAX PO SCH (10:11)
[2019-02-18] MEDS ORDERED: ATROPINE 1 % OPHTH SOLN SL PRN (12:30)
[2019-02-18] MEDS ORDERED: TYLENOL PR PRN (12:31)
--- NOTE | 2019-02-18 13:55 | PROGRESS NOTE ---
DATE: 02/18/2019 SUBJECTIVE: Ms. Lambert is in atrial flutter, rate is faster. She is requiring BiPAP. She is more obtunded, more confused. Family wants to make her comfort care. Son wanted to make her comfort care. OBJECTIVE: Vitals: Temperature 97.6 degrees, pulse 144, respirations 24. Blood pressure 108/72. Eyes: Pupils are equal, round. Lungs: Clear in upper lung gee anterolateral. Cardiovascular: Tachycardia. Abdomen: Rigid. Extremities: No pedal edema. ASSESSMENT AND PLAN: Postoperative exploratory laparotomy with [place]'s diverticulectomy and appendectomy and for a while seemed to be doing better, but her bowels, it appears she has another ileus and bowels are not moving. She is more uncomfortable, atrial flutter. Appears to have some pulmonary venous hypertension as well, and just continues to decline. So we will pursue comfort measures and I think Hospice will get involved. cc: Primitivo Zavala MD
[2019-02-18] MEDS: ATIVAN IM PRN ×3 (15:12→22:33)
[2019-02-18] MEDS: MORPHINE IV PRN ×3 (15:13→22:34)
[2019-02-19] MEDS ORDERED: VANCOMYCIN 1 GM/NS 1 GM/250 ML IVPB IV SCH (05:00)
[2019-02-19] MEDS: MORPHINE IV PRN ×9 (07:53→21:04)
[2019-02-19] MEDS: ATIVAN IM PRN ×2 (07:53→09:14)
[2019-02-19] MEDS: NICODERM PATCH TD SCH (08:17)
[2019-02-19] MEDS: ATIVAN IV PRN ×7 (10:28→21:02)
--- NOTE | 2019-02-19 22:33 | PROGRESS NOTE ---
DATE: 02/19/2019 SUBJECTIVE: The patient is comatose. Her family is present at the bedside. OBJECTIVE: Vital Signs: Temperature 98.1 degrees, blood pressure 80/50, heart rate 118, O2 saturations 62% on face mask. General: This is a comatose female lying in bed in no acute distress. Heart: S1, S2 normal. Tachycardic. Lungs: Coarse breath sounds bilaterally. Abdomen: Positive bowel sounds. Soft, nontender, nondistended. Extremities: 2+ edema bilaterally. Neurologic: The patient is comatose. ASSESSMENT: 1. Acute hypoxemic respiratory failure. 2. Status post exploratory laparotomy with appendectomy and diverticulectomy. 3. Hyponatremia. 4. Hypokalemia. PLAN: The patient is currently a DNR level 1. The patient is on comfort measures. cc: Renetta Lemus MD
[2019-02-20] MEDS: MORPHINE IV PRN ×2 (00:02→06:21)
[2019-02-20] MEDS: ATIVAN IV PRN (03:23)
[2019-02-20 07:57] VITALS: BP 82/50
[2019-02-20] MEDS: NICODERM PATCH TD SCH (12:20)
--- NOTE | 2019-02-21 21:05 | DISCHARGE SUMMARY ---
ADMISSION DATE: 02/07/2019 DISCHARGE DATE: 02/20/2019 FINAL DISCHARGE DIAGNOSES: 1. Acute hypoxemic respiratory failure. 2. Status post exploratory laparotomy with appendectomy and diverticulectomy. 3. Hypokalemia. 4. Hyponatremia. 5. Anemia. 6. Hyperkalemia. IMAGIN. Head CT performed on 02/07/[address] that [address] without contrast. 2. 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 3. CT of the abdomen and pelvis performed on 02/11/2019 that revealed a distal small bowel obstruction with worsened atelectasis versus pneumonia in the lower lobes as well as anasarca. CONSULTATIONS: General Surgery consultation with Dr. King. PROCEDURES: 1. Exploratory laparotomy with lysis of adhesions. 2. Open appendectomy. 3. Excision of a Meckel diverticulum. HOSPITAL COURSE: Ms. Bailey is a 68-year-old female with a history of multiple medical problems who presented to the ER with a chief complaint of altered mental status and agitation. 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 On admission, the patient was noted to have a sodium of 121 but upon looking back in the patient's history, the patient has a history of chronic hyponatremia with her sodium being as well as 120 in past visits. A chest x-ray was also done that revealed emphysema. The patient was admitted and a CT of the abdomen and pelvis was done that revealed a distal small bowel obstruction as well as atelectasis versus pneumonia. Blood cultures were obtained as well as a urine culture. General Surgery was consulted due to the findings on the CT. The patient was taken to the OR on 02/11/2019 at which time an exploratory laparotomy with lysis of adhesions and open appendectomy was performed as well as an excision of a Meckel diverticulum. Postoperatively, the patient did not do well. Her mental status did not improve and she was unable to eat, so she was started on Clinimix. The patient's condition continued to deteriorate. This was discussed with the patient's family who opted to make the patient a DNR level 1 with comfort measures only. Palliative Care was consulted for assistance. On 02/20/2019 at 10:27 a.m. the patient was pronounced . The patient's family was present at the bedside at the time of . cc: Renetta Lemus MD MTDD
== END 2019-02-20 10:27 | disposition expired | DRG 981 ==
LOC: SUPCPDRO → ED 11:11 → 3N 16:10 → SUATTDRO 16:10 → 3N 02-10 10:35
PROVIDERS: ATTEND Internal Medicine
CPT/HCPCS: 51702; 70450; 70552; 71010; 71045; 74000; 74018; 74019; 74020; 74177; 80048; 80053; 80101; 80301; 80307; 80324; 80345; 80346; 80353; 80358; 80361; 80365; 81001; 82550; 82553; 82570; 82805; 83605; 83735; 83930; 83935; 83992; 84100; 84295; 84300; 84439; 84443; 84484; 85025; 85027; 87040; 87077; 87088; 87186; 88304; 88313; 93005; 94640; 94660; 94760; 94761; 94799; 97110; 97162; 97530; 99285; A9270; A9579; G0431; G0434; G0479; G0480; J0131; J0690; J0692; J1650; J2060; J2270; J2405; J3370; J3480; J7030; J7040; J7042; J7050; J7506; J7512; Q9967